=== PATIENT | female | born 1980 | race Caucasian/White ===

== ENCOUNTER 2019-07-02 17:06 | Emergency (ER) | payer MEDICARE, MEDICAID, SELFPAY ==
[2019-07-02 17:08] VITALS: BMI 21.4
[2019-07-02 17:17] VITALS: BP 128/101; PULSE 93; RESP 16; TEMP 36.7; O2SAT 100
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
--- NOTE | 2019-07-02 17:28 | XR_ITS ---
WS: [id number] XR chest 1V portable [id number] REASON FOR EXAM: dyspnea/cough FINDINGS: The lung jauregui are mildly hyper aerated there is mild flattenings of the hemidiaphragms. The lung jauregui otherwise are clear there is no pneumonia, pleural effusion, pulmonary edema, or mass effect. The heart and mediastinum were normal. The hilum and apices normal. No osseous abnormalities. The rib cage appears to be within normal limits. XR/XR chest 1V portable [id number] IMPRESSION: Mild chronic obstructive pulmonary disease.
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
[2019-07-02] MEDS: iohexol 300 mg/mL 100 mL Btl IV (18:19)
[2019-07-02 18:45] LABS: Basophils % 0.4 %; Eosinophils % 0.3 %; Hematocrit 46.2 % (37.0-47.0); Hemoglobin 14.5 g/dL (11.5-15.3); Lymphocytes # 1.6 10^3/uL (0.8-4.8); Lymphocytes % 16.3 %; Mean Corpuscular HGB Conc 31.4 g/dL (30.0-36.0); Mean Corpuscular Hemoglobin 27.6 pg (28.0-34.0); Mean Corpuscular Volume 87.8 fL (81-99); Mean Platelet Volume 12.1 fL (7.4-10.4); Monocytes # 0.5 10^3/uL (0.2-0.9); Monocytes % 5.4 %; Neutrophils # 7.4 10^3/uL (1.8-7.7); Neutrophils % 77.2 %; Nucleated Red Blood Cells % 0 %; Platelet Count 247 10^3/cmm (130-400); Red Blood Count 5.26 10^6/uL (4.1-5.3); Red Cell Distribution Width 13.5 % (12.1-15.1); White Blood Count 9.6 10^3/uL (4.0-10.0)
[2019-07-02 18:56] LABS: Add Urine Microscopic? YES; Bilirubin Urine Neg (NEGATIVE); Blood Urine 2+ (Negative); Glucose Urine UA Norm (Normal); Ketones Urine Negative (Negative); Leukocyte Esterase Urine Negative (Negative); Nitrate Urine Positive (Negative); Protein Urine Neg (Negative); Specific Gravity, Urine 1.025 (1.005-1.030); Urine Appearance Hazy (CLEAR); Urine Color Yellow (Yellow); Urobilinogen Urine Norm (Negative); pH Urine 5 (5-7)
[2019-07-02 18:57] LABS: Add Urine Culture? Yes; Bacteria Urine 4+; Squamous Epithelial Cell Urine 0-4 (0-5); WBC Urine 15-25 /hpf (0-5)
[2019-07-02 18:58] LABS: Blood Urea Nitrogen 15 mg/dL (6-20); Carbon Dioxide 20 mmol/L (22-29); Chloride 101 mmol/L (98-107); Glomerular Filtration Rate 113.1 mL/min (90-130); Glucose 87 mg/dL (65-115); Osmolality Calculated 276 mOsm/kg (285-295); Sodium 135 mmol/L (136-145)
[2019-07-02] MEDS: cefdinir 300 MG CAPSULE PO (19:28)
[2019-07-02 19:31] VITALS: BP 147/104; PULSE 97; RESP 20
[2019-07-02 20:56] LABS: Amphetamines Screen Urine Positive (Negative); Barbiturates Screen Urine Negative (Negative); Benzodiazepines Screen Urine Positive (Negative); Cocaine Screen Urine Negative (Negative); Opiate Screen Urine Negative (Negative); PCP Screen Urine Negative (Negative); THC Screen Urine Negative (Negative)
== END 2019-07-02 19:30 | disposition home or self-care (01) ==
PROVIDERS: Family Medicine; Emergency Provider Emergency Medicine
DX: T14.8XXA Other injury of unspecified body region, initial encounter (principal); Y04.2XXA Assault by strike against or bumped into by another person, initial encounter; N39.0 Urinary tract infection, site not specified; R31.9 Hematuria, unspecified; F17.210 Nicotine dependence, cigarettes, uncomplicated; Z79.899 Other long term (current) drug therapy
CPT/HCPCS: 12345; 70450; 70486; 71045; 74177; 80048; 80306; 81001; 85025; 87077; 87086; 87186; 99282; 99283; Q9967

== ENCOUNTER 2019-08-28 22:14 | Emergency (ER) | payer MEDICARE, MEDICAID, SELFPAY ==
[2019-08-28 22:49] VITALS: BP 176/108; PULSE 105; RESP 20; TEMP 36.4; O2SAT 100; BMI 20.2
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
[2019-08-29 01:47] VITALS: RESP 18
[2019-08-29] MEDS: HYDROmorphone 1 mg/mL INJ 1 mL IVP (01:47)
[2019-08-29] MEDS: ondansetron 2 mg/ML SDV 2 mL 4 MG IVP (01:47)
[2019-08-29] MEDS: diphenhydrAMINE 50 mg/mL SDV 1mL IVP (01:48)
[2019-08-29 03:36] VITALS: BP 159/104; PULSE 90; RESP 18; O2SAT 100
--- NOTE | 2019-08-30 19:35 | ED_ITS ---
HPI - Extremity Problem General: Chief complaint: Extremity Injury, Upper Stated complaint: left arm injury Time Seen by Provider: 08/29/19 01:13 History of Present Illness: HPI Narrative: 38-year-old female who fell off a horse injuring her left forearm. She is in quite a bit of pain. She is iced. She has mild deformity. She states her fingers are somewhat tingly. MD Complaint: extremity pain and extremity swelling Onset (ago): hour(s) Pain Consistency: constant Location: left and upper extremity (Forearm) Quality: stabbing and aching Radiation: proximal Relieving factors: nothing Exacerbating factors: range of motion Associated symptoms: Reports no associated symptoms; Deny chest pain or fever(s) Review of Systems Const: Denies: fever(s) or chills Eyes: Denies: change in vision Card: Denies: chest pain Resp: Denies: dyspnea or productive cough GI: Reports: nausea; Denies: abdominal pain or vomiting PFS ED PFSH: Medical History (Updated 08/29/19 @ 02:33 by Winston Ervin DO) S/P ORIF (open reduction internal fixation) fracture Surgical History (Updated 07/02/19 @ 17:49 by Zoran Cuello DO) History of cholecystectomy Social History Smoking and tobacco status: current every day smoker Female Reproductive History: Date of last menstrual period: 07/02/19 Physical Exam Const: COMMON NORMALS: patient oriented x3 and alert Chest: COMMONS NORMALS: normal inspection of the chest Resp: COMMON NORMALS: normal respiratory effort, No use of accessory muscles and clear to auscultation bilaterally AUSCULTATION: clear to auscultation bilaterally Cardio: COMMON NORMALS: regular rhythm RATE: tachycardic RHYTHM: regular rhythm Extremity: NARRATIVE EXTREMITY EXAM: Significant tenderness over the left distal radius, with some more diffuse tenderness proximally. There is swelling and mild deformity. Neurovascular is intact distally Neuro: COMMON NORMALS: patient oriented x3 SENSORIUM/ORIENTATION: Yes alert Course Vital Signs: Vital signs: Vital Signs Temperature 97.6 F 08/28/19 22:49 Pulse Rate 90 08/29/19 03:36 Respiratory Rate 18 08/29/19 03:36 Blood Pressure 159/104 08/29/19 03:36 Pulse Oximetry 100 08/29/19 03:36 MDM - Extremity (Nontraumatic) MDM Narrative: Medical decision making narrative: Comminuted intra-articular distal radius fracture. Minimal displacement. She is placed in a sugar tong splint, given pain medication. Told to ice. She will follow-up as an outpatient with orthopedics. Discharge Plan Discharge Patient Disposition: Home, Self-Care Clinical Impression: Fracture of wrist Qualifiers: Encounter type: initial encounter Fracture type: closed Laterality: left Qualified Code(s): S62.102A - Fracture of unspecified carpal bone, left wrist, initial encounter for closed fracture Condition: Stable Prescriptions: New Percocet 7.5-325 mg tablet 1 tab PO Q6H PRN (Reason: pain) Qty: 14 RF: 0 No Action spinosad [Natroba] 0.9 % suspension 30 ml TOPICAL Q7D Qty: 120 RF: 0 Discharge Orders: Discharge Order (Routine); Ordered 08/29/19 Ordered By: Winston Ervin Referrals: Duran Cortés MD [Physician] - 4-7 days Discharge Diet: Advance as tolerated Discharge Activity: Limit activity as instructed Patient Instructions: Wrist Fracture in Adults (ED) Activity Restrictions/Additional Instructions: Call the orthopedic clinic for an appointment this coming week. Stay in your splint until seen by them. Return for worsening pain despite treatment, inability to feel your fingers in the splint, fever, other concerning symptoms. Medication as directed. Discharge Date/Time: 08/29/19 03:47 Coding Level of Care Code ED Rock Climbing Team Member for Tio Ochoa
--- NOTE | 2019-08-31 14:37 | DCPLANNER ---
general manager road production had message to schedule a follow up appointment for patient with ortho. general manager road production called the ortho clinic, spoke with Pat, gave clinic patients information. A follow up appointment was scheduled for Sunday, September 01, 2019 at 8:[address] Bello. Patient is aware of appointment.
--- NOTE | 2019-09-04 14:59 | DCPLANNER ---
Patient did attend appointment scheduled for 09.01.19 with ortho.
== END 2019-08-29 03:47 | disposition home or self-care (01) ==
PROVIDERS: Emergency Provider Emergency Medicine
DX: S52.572A Other intraarticular fracture of lower end of left radius, initial encounter for closed fracture (principal); V80.010A Animal-rider injured by fall from or being thrown from horse in noncollision accident, initial encounter; F17.210 Nicotine dependence, cigarettes, uncomplicated
CPT/HCPCS: 12345; 29125; 73090; 96374; 96375; 99283; J1170; J1200; J2405

== ENCOUNTER → 2019-09-01 08:59 | Outpatient (BNVA) | payer MEDICARE, MEDICAID, SELFPAY | PROVIDERS: Visit Provider Orthopaedic Surgery | DX: S52.612A Displaced fracture of left ulna styloid process, initial encounter for closed fracture (principal); V80.010A Animal-rider injured by fall from or being thrown from horse in noncollision accident, initial encounter | CPT/HCPCS: 73110 ==

== ENCOUNTER 2019-09-01 14:19 | Outpatient (CLI) | payer MEDICARE, MEDICAID, SELFPAY | END 2019-09-01 14:20 | disposition home or self-care (01) | LOC: SPT 14:20 | PROVIDERS: Visit Provider Orthopaedic Surgery | DX: Z46.89 Encounter for fitting and adjustment of other specified devices (principal); S52.532D Colles' fracture of left radius, subsequent encounter for closed fracture with routine healing; X58.XXXD Exposure to other specified factors, subsequent encounter; S52.612A Displaced fracture of left ulna styloid process, initial encounter for closed fracture; V80.010A Animal-rider injured by fall from or being thrown from horse in noncollision accident, initial encounter | CPT/HCPCS: 73110; 97760; L3982 ==

== ENCOUNTER 2019-11-21 10:52 | Emergency (ER) | payer MEDICARE, MEDICAID, SELFPAY ==
[2019-11-21 11:10] VITALS: BP 142/90; PULSE 84; RESP 18; TEMP 36.9; O2SAT 100; BMI 20.2
--- NOTE | 2019-11-21 11:39 | XRR_ITS ---
PROCEDURE INFORMATION: Exam: XR Right Hand Exam date and time: 11/21/2019 11:43 AM Age: 39 years old Clinical indication: Injury or trauma; Initial encounter; Bite; Hand; Right; Additional info: Dog bite TECHNIQUE: Imaging protocol: XR Right hand. Views: 3 or more views. COMPARISON: No relevant prior studies available. FINDINGS: The exact location of the patient's symptoms are not known at the time of dictation. Bones/joints: No acute bony injury or malalignment in the visualized right hand. Soft tissues: No radiopaque foreign body. XR/XR hand RT min 3V* [id number] IMPRESSION: No acute bony injury or malalignment in the visualized right hand.
[2019-11-21] MEDS: HYDROcodone-acetaminophen 5-325 mg Tablet 1 TAB PO (12:03)
[2019-11-21] MEDS: tetanus-diphtheria tox (adult) 0.5 mL SDV IM (12:03)
--- NOTE | 2019-11-21 12:11 | W.ED.ANIMALB ---
HPI - Animal Bite General: Chief Complaint: Animal Bite Stated Complaint: RIGHT HAND DOG BITE Time Seen by Provider: 11/21/19 11:19 History of Present Illness: MD complaint: animal bite Onset (ago): minute(s) (30) Animal: dog Description of animal: household pet and immunizations UTD Mechanism: bite Location - Extremities: Right: hand Pain description: sharp Severity scale (1-10): 9 Context: animals fighting Associated symptoms: Reports no associated symptoms; Deny chills or fever(s) Related Data: Patient tetanus UTD: No Review of Systems General: Reports: 10 or more systems reviewed and unremarkable except in HPI and below Const: Denies: fever(s) or chills Resp: Reports: dyspnea, wheezing and stridor Musc: Reports: neck pain, back pain and other (dog bite to palmar and dorsal surface of right hand) Psych: Denies: suicidal ideation or homicidal ideation [facility] ED PFSH: Medical History S/P ORIF (open reduction internal fixation) fracture Surgical History History of cholecystectomy Social History Smoking and tobacco status: current every day smoker Female Reproductive History: Date of last menstrual period: 07/02/19 Physical Exam Const: COMMON NORMALS: no acute distress, average body habitus, patient oriented x3, no limitations, healthy appearing, alert and well nourished Chest: COMMONS NORMALS: normal inspection of the chest, normal palpation of entire chest wall, normal inspection of the breasts and normal palpation of the breasts Resp: COMMON NORMALS: normal respiratory effort, No retractions, No use of accessory muscles, clear to auscultation bilaterally and percussion normal AUSCULTATION: clear to auscultation bilaterally PERCUSSION: percussion normal Cardio: COMMON NORMALS: regular rate and regular rhythm RATE: regular rate RHYTHM: regular rhythm Extremity: RIGHT UPPER EXTREMITY: Yes hand & digits (patient has 4 puncture wounds to dorsal and palmar surfae of right hand) Right hand and digits: Yes neurovascular exam (NVI distally) and Yes tendon exam (normal) Neuro: COMMON NORMALS: patient oriented x3 SENSORIUM/ORIENTATION: Yes alert Course Vital Signs: Vital signs: Vital Signs Temperature 98.4 F 11/21/19 11:10 Pulse Rate 84 11/21/19 11:10 Respiratory Rate 18 11/21/19 11:10 Blood Pressure 142/90 11/21/19 11:10 Pulse Oximetry 100 11/21/19 11:10 MDM - Animal Bite MDM Narrative: Medical decision making narrative: Pt is well appearing non toxic and in no acute distress, PT is declining rabies as she states she is not concerned as this is a family dog. WOunds were irrigated extensively antibiotic oinment and dressing applied. Tetanus was updated today. I will place patient on Augment. Pt is NVI distally. I will refer patietn to hand surgeon for recheck. xray was negative for any acute findings. Differential Diagnosis: Differential diagnosis animal bite: Likely bite by animal, dog bite and rabies contact Medical Records: Attestation: I reviewed the patient's medical records. Discharge Plan Discharge Patient Disposition: Home Clinical Impression: Dog bite Qualifiers: Encounter type: initial encounter Qualified Code(s): W54.0XXA - Bitten by dog, initial encounter Condition: Stable Prescriptions: New Augmentin 875-125 mg tablet 1 tab PO BID 10 Days Qty: 20 RF: 0 No Action hydrocodone-acetaminophen [[place]] 5-325 mg tablet 1 tab PO Q4H PRN (Reason: pain) 7 Days Qty: 30 RF: 0 (DME) FAST FORM COCK UP SPLINT See Rx Instructions .Route .MEDSUPPLY Qty: 1 RF: 0 spinosad [Natroba] 0.9 % suspension 30 ml TOPICAL Q7D Qty: 120 RF: 0 Percocet 7.5-325 mg tablet 1 tab PO Q6H PRN (Reason: pain) Qty: 14 RF: 0 Discharge Orders: Discharge Order (Routine); Ordered 11/21/19 Ordered By: Fatuma Arriaga Discharge Diet: Advance as tolerated Discharge Activity: Resume usual activity Patient Instructions: Animal Bite (ED), Rabies (ED) Activity Restrictions/Additional Instructions: 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
--- NOTE | 2019-11-21 13:15 | PC.NURSE ---
Patient refused rabies vaccinations at this time. Was instructed by the neighbor that they dog was up to date on shots.
[2019-11-21 13:16] VITALS: BP 134/74; PULSE 98; RESP 18; O2SAT 99
--- NOTE | 2019-11-23 09:07 | DCPLANNER ---
vitamin manager had message to schedule a followup appointment for patient with ortho. vitamin manager called the ortho clinic, spoke with Collette, gave clinic patients information. vitamin manager was told that patients information would be printed and reviewed. Clinic will call patient with appointment information.
--- NOTE | 2019-11-25 11:40 | DCPLANNER ---
Patient called case planner stating that she would like to be referred to Dr. Jackson at [facility] in [place], [place]. manager case faxed patients information to [facility]. Clinic will call patient with appointment information.
--- NOTE | 2019-11-27 14:38 | DCPLANNER ---
medical manager called Jeana goodwin to confirm if a follow up appointment had been scheduled with patient. medical manager was told that clinic informed patient that she will need to follow up with her primary care physician.
== END 2019-11-21 13:17 | disposition home or self-care (01) ==
PROVIDERS: Emergency Provider Registered Nurse
DX: S61.451A Open bite of right hand, initial encounter (principal); W54.0XXA Bitten by dog, initial encounter; F17.210 Nicotine dependence, cigarettes, uncomplicated; Z23 Encounter for immunization
CPT/HCPCS: 12345; 73130; 90471; 90714; 99281; 99283

== ENCOUNTER 2020-02-20 15:48 | Emergency (ER) | payer MEDICARE, MEDICAID, SELFPAY ==
[2020-02-20 15:50] VITALS: BP 145/100; PULSE 88; RESP 18; TEMP 36.7; O2SAT 98; BMI 20.5
[2020-02-20 15:55] VITALS: PULSE 77; RESP 16; TEMP 36.8; O2SAT 100
--- NOTE | 2020-02-20 16:03 | W.ED.URI ---
HPI - URI/Sore Throat General: Chief Complaint: Upper Respiratory Infection Stated Complaint: Sore Throat, Body Aches Time Seen by Provider: 02/20/20 15:56 History of Present Illness: HPI Narrative: 39-year-old female patient presents to the emergency department with 2-day onset of sore throat. She reports upon exam, think I have strep throat . She reports Chloraseptic throat spray use that helps with pain. She also reports has taken Tylenol. Unknown if she has had fever as she has been taking Tylenol regularly. Reports pain with swallowing but is able to tolerate p.o. fluids. MD elicited complaint: sore throat Onset (ago): day(s) (2) Consistency: constant and progressively worsening Severity: moderate Able to tolerate fluids by mouth: Yes Exacerbating factors: swallowing Relieving factors: lozenge and other (Tylenol) Associated symptoms: Reports chills, nausea and sore throat; Deny abdominal pain, chest pain, congestion, cough, diarrhea, headache(s), nasal congestion, rash, short of breath, stiffness or vomiting Treatments prior to arrival: acetaminophen Review of Systems General: Reports: 10 or more systems reviewed and unremarkable except in HPI and below Const: Reports: chills Eyes: Denies: blurry vision or eye redness ENMT: Reports: enlarged tonsils and odynophagia; Denies: uvular edema, dry mouth, change in hearing, nasal discharge or nasal congestion Card: Denies: chest pain, palpitations or irregular heart rhythm Resp: Denies: dyspnea, productive cough, non-productive cough or wheezing GI: Reports: nausea; Denies: abdominal pain, vomiting, heartburn, diarrhea or constipation : Denies: difficulty voiding or dysuria Musc: Denies: neck pain or back pain Skin/Breast: Denies: rash or pruritus Neuro: Denies: headache(s), weakness in extremities or behavioral changes Psych: Denies: anxiety or depression Colin/Lymph: Denies: easy bruising PFS ED PFSH: Medical History (Updated 02/20/20 @ 16:50 by HERMES Jacobo) S/P ORIF (open reduction internal fixation) fracture Surgical History History of cholecystectomy Social History Smoking and tobacco status: current every day smoker Female Reproductive History: Date of last menstrual period: 07/02/19 Physical Exam Const: COMMON NORMALS: no acute distress, patient oriented x3, healthy appearing, alert and well nourished EXAM LIMITATIONS: no altered mental status and no physical limitations GENERAL APPEARANCE: cooperative, comfortable, well kempt, well developed and well hydrated; not ill appearing NUTRITIONAL APPEARANCE: thin ORIENTATION/CONSCIOUSNESS: Yes awake, Yes oriented to person, Yes oriented to place and Yes oriented to time HENMT: COMMON NORMALS: normocephalic, atraumatic, external ears normal, EAC's normal, TM's normal bilaterally, Normal external nose present and moist oral mucous membranes HEAD & SCALP: normal to inspection, normocephalic and atraumatic NOSE: Normal external nose present, Normal nares present and No nasal polyps present EXTERNAL EAR: Yes external ears normal EXTERNAL AUDITORY CANAL: EAC's normal TYMPANIC MEMBRANE: TM's normal bilaterally MOUTH: Normal oral and palatal mucosa present, lip normal and tongue normal; no muffled voice THROAT: abnormal tonsil bilateral and posterior oropharynx abnormal erythema and exudates; no peritonsillar mass, no postnasal drainage, uvula not laterally displaced and no uvular edema Eye: COMMON NORMALS: Equal, round and reactive pupils present and EOMs intact bilaterally GENERAL EYE: appearance normal, both eyes and all related structures PUPIL: Yes Equal, round and reactive pupils present Neck/C-Spine: COMMON NORMALS: full ROM and no lymphadenopathy GENERAL: Yes normal visual inspection and Yes trachea midline CERVICAL SPINE: Yes cervical ROM normal Lymph: LYMPHATIC: no lymphadenopathy noted Chest: COMMONS NORMALS: normal inspection of the chest and normal palpation of entire chest wall Resp: COMMON NORMALS: normal respiratory effort, No retractions, No use of accessory muscles and clear to auscultation bilaterally EFFORT & INSPECTION: Yes able to speak in complete sentences AUSCULTATION: clear to auscultation bilaterally Cardio: COMMON NORMALS: regular rhythm, S1 normal heart sound present, S2 normal heart sound present and Peripheral pulses 2+ throughout RHYTHM: regular rhythm HEART SOUNDS: S1 normal heart sound present and S2 normal heart sound present PERIPHERAL PULSES: Peripheral pulses 2+ throughout GI: COMMON NORMALS: Normal to inspection, nondistended, normoactive bowel sounds present, Soft to palpation and non-tender INSPECTION: Yes normal to inspection PALPATION: Yes Soft to palpation : COMMON NORMALS: Yes no CVA tenderness BLADDER/KIDNEY EXAM: Yes no CVA tenderness Back/Pelvis: COMMON NORMALS: no CVA tenderness and thoracic and lumbar spine normal to inspection Extremity: COMMON NORMALS: normal to inspection and capillary refill normal Neuro: COMMON NORMALS: patient oriented x3 and no focal motor deficits SENSORIUM/ORIENTATION: Yes alert, Yes oriented to person, Yes oriented to place and Yes oriented to time Psych: COMMON NORMALS: mental status grossly normal, Normal thought process present and cooperative APPEARANCE: Yes well kempt ACTIVITY/MOTOR BEHAVIOR: Yes appropriate eye contact THOUGHT PROCESS: Normal thought process present Skin: COMMON NORMALS: no rashes or lesions noted and turgor normal GENERAL SKIN EXAM: no rashes or lesions noted and turgor normal Course ED course: 39-year-old female patient presents to the emergency department with complaints of sore throat. She reports has strep throat, similar to previous episode she has experienced. Strep screen results pending. She is wanting to go home, will prescribe Pen-V K and call tomorrow with results of strep screen. She agrees with plan, advised to return to the emergency department if she develops inability swallow or difficulty breathing. Advised to continue Pen-V K until all gone even if feeling better. Vital Signs: Vital signs: Vital Signs Temperature 98.2 F 02/20/20 15:55 Pulse Rate 77 02/20/20 15:55 Respiratory Rate 16 02/20/20 15:55 Blood Pressure 145/100 02/20/20 15:50 Pulse Oximetry 100 02/20/20 15:55 Discharge Plan Discharge Patient Disposition: Home Clinical Impression: Pharyngitis Qualifiers: Pharyngitis/tonsillitis etiology: streptococcus Qualified Code(s): J02.0 - Streptococcal pharyngitis Condition: Stable Prescriptions: New penicillin V potassium 500 mg tablet 500 mg PO TID 10 Days Qty: 30 RF: 0 IBU 600 mg tablet 600 mg PO TID PRN (Reason: fever or pain) Qty: 15 RF: 0 No Action hydrocodone-acetaminophen [[place]] 5-325 mg tablet 1 tab PO Q4H PRN (Reason: pain) 7 Days Qty: 30 RF: 0 (DME) FAST FORM COCK UP SPLINT See Rx Instructions .Route .MEDSUPPLY Qty: 1 RF: 0 spinosad [Natroba] 0.9 % suspension 30 ml TOPICAL Q7D Qty: 120 RF: 0 Percocet 7.5-325 mg tablet 1 tab PO Q6H PRN (Reason: pain) Qty: 14 RF: 0 Discharge Orders: Discharge ED (Routine); Ordered 02/20/20 Ordered By: Anastasiia Amezcua Discharge Diet: GI Soft Discharge Activity: Resume usual activity Patient Instructions: Pharyngitis (ED), Strep Throat (ED) Activity Restrictions/Additional Instructions: increase fluids take Penicillin until all gone, even if feeling better return to the ED if you experience difficulty breathing, swallowing or increased pain Coding Level of Care Code ED Fertilizer Supervisor for Meleg Fwd Exam Comprehensive
[2020-02-20 17:48] LABS: Rapid Strep A Test Positive (Negative)
== END 2020-02-20 17:14 | disposition home or self-care (01) ==
PROVIDERS: Emergency Provider Nurse Practitioner Family
DX: J02.0 Streptococcal pharyngitis (principal); F17.210 Nicotine dependence, cigarettes, uncomplicated
CPT/HCPCS: 12345; 87880; 99281; 99282

== ENCOUNTER → 2020-10-20 12:40 | Outpatient (BNVA) | payer MEDICAID, SELFPAY | PROVIDERS: Visit Provider Nurse Practitioner | DX: R39.9 Unspecified symptoms and signs involving the genitourinary system (principal); N39.0 Urinary tract infection, site not specified; Z20.2 Contact with and (suspected) exposure to infections with a predominantly sexual mode of transmission | CPT/HCPCS: 81000; 87491; 87591; 87661 ==

== ENCOUNTER → 2021-03-01 18:48 | Outpatient (BNVA) | payer MEDICAID, SELFPAY | PROVIDERS: Visit Provider Nurse Practitioner | DX: N39.0 Urinary tract infection, site not specified (principal) | CPT/HCPCS: 81000 ==

== ENCOUNTER → 2021-03-23 18:45 | Outpatient (BNVA) | payer MEDICAID, SELFPAY | PROVIDERS: Visit Provider Nurse Practitioner | DX: R39.9 Unspecified symptoms and signs involving the genitourinary system (principal); N39.0 Urinary tract infection, site not specified | CPT/HCPCS: 81000; 81025; 87077; 87086; 87184; 87491; 87591; 87661 ==

== ENCOUNTER 2021-04-04 23:07 | Emergency (ER) | payer MEDICAID, SELFPAY ==
[2021-04-04 23:15] VITALS: BP 126/82; PULSE 108; RESP 18; TEMP 36.6; O2SAT 100; BMI 22.3
--- NOTE | 2021-04-04 23:29 | W.ED.GENADLT ---
HPI - General Adult General: Chief complaint: General Medical Stated complaint: Sore Throat Time Seen by Provider: 04/04/21 23:24 Source: patient Mode of arrival: ambulatory Limitations: no limitations History of Present Illness: Patient is a 40-year-old female who presents to ED today with complaint of a sore throat and swollen tonsils. Patient states her symptoms are similar to when she has had strep throat previously. She complains of a minor headache. She still able to eat, drink, and swallow normally. No documented fevers. Onset (ago): day(s) Pain Consistency: constant Relieving factors: none Exacerbating factors: other (swallowing) Associated symptoms: Deny chest pain, dyspnea, headache(s), malaise, nausea, rash or vomiting Treatments prior to arrival: none Review of Systems Const: Denies: fever(s), chills, body aches, fatigue or malaise Eyes: Denies: change in vision, blurry vision, photophobia, floaters or seeing flashes ENMT: Reports: throat pain, enlarged tonsils and odynophagia; Denies: uvular edema, mouth pain, dental pain, nasal discharge or nasal congestion Card: Denies: chest pain Resp: Denies: dyspnea GI: Denies: abdominal pain, nausea or vomiting Musc: Denies: neck pain or back pain Skin/Breast: Denies: rash Neuro: Denies: headache(s), numbness in extremities, weakness in extremities or sensory changes [facility] ED PFSH: Surgical History History of cholecystectomy S/P ORIF (open reduction internal fixation) fracture Social History Smoking and tobacco status: former smoker Female Reproductive History: Date of last menstrual period: 07/02/19 Physical Exam Const: COMMON NORMALS: no acute distress, average body habitus, patient oriented x3, no limitations, healthy appearing, alert and well nourished GENERAL APPEARANCE: cooperative ORIENTATION/CONSCIOUSNESS: Yes awake, Yes oriented to person, Yes oriented to place and Yes oriented to time HENMT: COMMON NORMALS: normocephalic, atraumatic, EAC's normal, TM's normal bilaterally and moist oral mucous membranes HEAD & SCALP: normal to inspection, normocephalic and atraumatic FACE & SINUS: normal facial exam EXTERNAL AUDITORY CANAL: EAC's normal TYMPANIC MEMBRANE: TM's normal bilaterally MOUTH: Normal oral and palatal mucosa present, lip normal and tongue normal THROAT: posterior oropharynx normal, uvula midline and abnormal tonsil (bilateral R>L tonsillar hypertropy with exudates; 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); no peritonsillar mass and no uvular edema Neck/C-Spine: COMMON NORMALS: full ROM and no lymphadenopathy GENERAL: No anterior neck swelling and No submandibular swelling Resp: COMMON NORMALS: normal respiratory effort Neuro: COMMON NORMALS: patient oriented x3 SENSORIUM/ORIENTATION: Yes alert, Yes oriented to person, Yes oriented to place and Yes oriented to time Course Vital Signs: Vital signs: Vital Signs Temperature 97.9 F 04/04/21 23:15 Pulse Rate 108 H 04/04/21 23:15 Respiratory Rate 18 04/04/21 23:15 Blood Pressure 126/82 04/04/21 23:15 Pulse Oximetry 100 04/04/21 23:15 MDM - General Adult Medical Decision Making Pt given IM Bicillin. Rapid strep obtained but pt doesn't want to wait for results-states she can look them up on her patient portal. Return to ED precautions given. Lab Data Laboratory Results Group A Strep Rapid Negative (Negative) 04/04/21 23:34 Discharge Plan Discharge Patient Disposition: Home Clinical Impression: Acute tonsillitis Condition: Stable Prescriptions: No Action lisinopril 20 mg tablet 20 mg PO DAILY 0RF phenazopyridine [P[place]idium] 200 mg tablet 200 mg PO TID Qty: 6 0RF ciprofloxacin HCl [Cipro] 500 mg tablet 500 mg PO Q12H 7 Days Qty: 14 0RF Discharge Orders: Discharge ED (Routine); Ordered 04/05/21 Ordered By: April Sunshine Coding Level of Care Code ED Switchboard Operator Assistant for Meleg Don
[2021-04-04 23:49] LABS: Rapid Strep A Test Negative (Negative)
[2021-04-04] MEDS: penicillin g (L-A) 1,200,000 unit/2 mL Syr 1200000 UNIT IM (23:54)
== END 2021-04-05 00:06 | disposition home or self-care (01) ==
PROVIDERS: Emergency Provider Physician Assistant
DX: J03.90 Acute tonsillitis, unspecified (principal); Z87.891 Personal history of nicotine dependence
CPT/HCPCS: 87081; 87880; 96372; 99283; J0561

== ENCOUNTER → 2021-05-14 18:45 | Outpatient (BNVA) | payer MEDICAID, SELFPAY | PROVIDERS: Visit Provider Registered Nurse Neonatal Intensive Care | DX: Z20.2 Contact with and (suspected) exposure to infections with a predominantly sexual mode of transmission (principal); N39.0 Urinary tract infection, site not specified; B37.3 Candidiasis of vulva and vagina | CPT/HCPCS: 81000; 87491; 87591; 87661 ==

== ENCOUNTER → 2021-06-03 16:29 | Outpatient (BNVA) | payer MEDICAID, SELFPAY | PROVIDERS: Visit Provider Nurse Practitioner Family | DX: N39.0 Urinary tract infection, site not specified (principal); Z20.2 Contact with and (suspected) exposure to infections with a predominantly sexual mode of transmission | CPT/HCPCS: 81000; 87661 ==

== ENCOUNTER → 2021-07-13 17:00 | Outpatient (BNVA) | payer MEDICAID, SELFPAY | PROVIDERS: Visit Provider Family Medicine | DX: S99.922A Unspecified injury of left foot, initial encounter (principal); W22.8XXA Striking against or struck by other objects, initial encounter; R60.0 Localized edema; M25.572 Pain in left ankle and joints of left foot | CPT/HCPCS: 73610; 73630 ==

== ENCOUNTER 2022-09-22 03:03 | Emergency (ER) | payer MEDICAID, SELFPAY ==
[2022-09-22 03:13] VITALS: BP 153/112; PULSE 92; RESP 18; TEMP 36.8; O2SAT 100; BMI 21.9
[2022-09-22] MEDS: dexamethasone 4 mg Tablet 10 MG PO (03:29)
[2022-09-22 03:46] LABS: Rapid Strep A Test Negative (Negative)
[2022-09-22 03:53] LABS: SARS Covid-2 Antigen negative (Negative)
[2022-09-22] MEDS: ketorolac 30 mg/mL INJ IM (04:18)
[2022-09-22] MEDS: amoxicillin-clav 875-125 mg Tablet 1 TAB PO (04:18)
--- NOTE | 2022-09-22 05:41 | W.ED.URI ---
HPI - URI/Sore Throat General: Chief Complaint: Upper Respiratory Infection Stated Complaint: Sore throat Time Seen by Provider: 09/22/22 03:28 Source: patient History of Present Illness: 41-year-old female complaining of sore throat that began around 10 PM last night suddenly she says. No fever. No vomiting. No congestion. Pain with swallowing. No change in voice. No shortness of breath. MD elicited complaint: sore throat Pertinent past history: other Onset (ago): hour(s) Consistency: constant Severity: moderate Able to tolerate fluids by mouth: Yes Exacerbating factors: swallowing Relieving factors: nothing Associated symptoms: Reports sore throat; Deny abdominal pain, chest pain, congestion, cough, diarrhea, fever(s), headache(s), nasal congestion, nausea, rhinorrhea, short of breath, stiffness or vomiting Review of Systems Const: Denies: fever(s) ENMT: Reports: throat pain and odynophagia; Denies: hoarseness, swelling of lips/tongue or nasal congestion Card: Denies: chest pain Resp: Denies: dyspnea, productive cough or non-productive cough GI: Denies: abdominal pain, nausea, vomiting or diarrhea Musc: Reports: neck pain Neuro: Denies: headache(s) PFSH ED PFSH: Surgical History History of cholecystectomy S/P ORIF (open reduction internal fixation) fracture Social History Smoking and tobacco status: former smoker Alcohol intake: current Alcohol intake frequency: few times a month Substance/Drug Use: never Physical Exam Const: COMMON NORMALS: no acute distress GENERAL APPEARANCE: cooperative; not ill appearing and not frail appearing HENMT: COMMON NORMALS: normocephalic, atraumatic and Normal external nose present HEAD & SCALP: normocephalic and atraumatic FACE & SINUS: normal facial exam and face symmetric NOSE: Normal external nose present THROAT: abnormal tonsil right (Mild swelling) erythema and left erythema, exudates, hypertrophy and pitting; no peritonsillar mass Eye: COMMON NORMALS: Equal, round and reactive pupils present and EOMs intact bilaterally PUPIL: Yes Equal, round and reactive pupils present Neck/C-Spine: GENERAL: Yes trachea midline Chest: CHEST: Yes Symmetrical chest wall rise Resp: COMMON NORMALS: normal respiratory effort, No retractions, No use of accessory muscles and clear to auscultation bilaterally AUSCULTATION: clear to auscultation bilaterally Cardio: COMMON NORMALS: regular rate and regular rhythm RATE: regular rate RHYTHM: regular rhythm GI: COMMON NORMALS: Normal to inspection, nondistended, normoactive bowel sounds present Extremity: COMMON NORMALS: no pedal edema Neuro: ANGELINA COMA SCALE: document GCS findings Angelina coma scale eye opening: Spontaneous [place] coma scale verbal response: Orientated Angelina coma scale motor response: Obey commands Angelina coma scale total score: 15 SENSORY EXAM: Yes extremities (intact) Psych: COMMON NORMALS: speech normal SPEECH: Yes normal speech Skin: COMMON NORMALS: no rashes or lesions noted GENERAL SKIN EXAM: no rashes or lesions noted Course Vital Signs: Vital signs: Vital Signs Temperature 98.3 F 09/22/22 03:13 Pulse Rate 92 09/22/22 03:13 Respiratory Rate 18 09/22/22 03:13 Blood Pressure 153/112 09/22/22 03:13 Pulse Oximetry 100 09/22/22 03:13 Oxygen Delivery Me thod Room Air 09/22/22 03:13 MDM - URI/Sore Throat Medical Decision Making No definite abscess on physical exam. Swelling is asymmetrical left greater than right. She does have some exudate on the left. She will be placed on antibiotics for coverage, especially of oral bacteria since her rapid strep is negative. She is instructed return if not improving despite 3-4 doses of antibiotics, or if swelling worsens for potential imaging. She was not imaged this morning, she is afebrile, her voice is normal, she has no palatial involvement or deviation, etc. Lab Data Laboratory Results SARS-CoV-2 Ag (Rapid) negative (Negative) 09/22/22 03:29 Group A Strep Rapid Negative (Negative) 09/22/22 03:29 Discharge Plan Discharge Patient Disposition: Home Clinical Impression: Pharyngitis Condition: Stable Prescriptions: New amoxicillin-pot clavulanate 875-125 mg tablet 1 tab PO BID Qty: 20 0RF ketorolac 10 mg tablet 10 mg PO TID PRN (Reason: pain) Qty: 10 0RF No Action azithromycin [Zithromax Z-Rex] 250 mg tablet See Rx Instructions PO .COMPLEX Qty: 6 0RF Rx Instructions: For 250 mg dose pack: take 500 mg today (day 1), then 250 mg for 4 days (days 2-5) PO lisinopril 20 mg tablet 20 mg PO DAILY Qty: 30 0RF Discharge Orders: Discharge ED (Routine); Ordered 09/22/22 Ordered By: Winston Ervin Referrals: Juan Lomas, [Primary Care Provider] - 1-3 days Patient Instructions: Pharyngitis (ED), Opioid Safety, Pain Management Activity Restrictions/Additional Instructions: Return for continued or worsening pain and swelling of the tonsils after 3-4 doses of antibiotics, fever despite 3-4 doses of antibiotics, shortness of breath or worsening trouble swallowing, other concerning symptoms. Follow-up with your doctor next week. Coding Level of Care Code ED Flight Deck Officer for Tio Ochoa
== END 2022-09-22 04:19 | disposition home or self-care (01) ==
PROVIDERS: Emergency Provider Emergency Medicine; PCP Family Medicine
DX: J02.9 Acute pharyngitis, unspecified (principal); Z20.822 Contact with and (suspected) exposure to COVID-19; Z87.891 Personal history of nicotine dependence
CPT/HCPCS: 87081; 87426; 87880; 96372; 99284; J1885; J8540

== ENCOUNTER → 2023-08-23 18:30 | Outpatient (BNVA) | payer BC, MEDICAID, SELFPAY | PROVIDERS: PCP Family Medicine; Visit Provider Nurse Practitioner | DX: N92.6 Irregular menstruation, unspecified (principal); R30.0 Dysuria; Z20.2 Contact with and (suspected) exposure to infections with a predominantly sexual mode of transmission | CPT/HCPCS: 81000; 81025; 87491; 87591 ==

== ENCOUNTER → 2024-11-05 09:51 | Outpatient (BNVA) | payer BC, MEDICAID, SELFPAY | PROVIDERS: PCP Family Medicine; Visit Provider Nurse Practitioner Women's Health | DX: Z34.90 Encounter for supervision of normal pregnancy, unspecified, unspecified trimester (principal) | CPT/HCPCS: 80307; 82950; 84315; 84443; 85025; 86592; 86762; 86803; 86850; 86900; 87086; 87340; 87491; 87591; 87661; 87806 ==

== ENCOUNTER → 2024-11-06 00:08 | Outpatient (BNVA) | payer BC, MEDICAID, SELFPAY | PROVIDERS: PCP Family Medicine; Visit Provider Nurse Practitioner Women's Health | DX: Z01.89 Encounter for other specified special examinations (principal) | CPT/HCPCS: 87522 ==

== ENCOUNTER 2024-11-13 14:30 | Outpatient (CLI) | payer BC, MEDICAID, SELFPAY ==
--- NOTE | 2024-11-13 14:45 | USR_ITS ---
PROCEDURE INFORMATION: Exam: US After First Trimester, Transabdominal Exam date and time: 11/13/2024 2:53 PM Age: 44 years old Clinical indication: Screening exam; Routine US, uterus; Additional info: Z34.90 - encounter for supervision of normal , u. . . , Vishal--late to care LABS AND CLINICAL REPORTS: Last menstrual period start date: Unknown Gestational age (Established): 30 w 2 d Estimated due date (Established): 01/20/2025 TECHNIQUE: Imaging protocol: Real-time transabdominal obstetrical ultrasound of the maternal pelvis and a second or third trimester with image documentation. COMPARISON: CT abdomen pelvis w con* [id number] 07/02/2019 6:16 PM FINDINGS: Gestation: Single live intrauterine gestation. heart rate: 145 bpm presentation and position: Cephalic Placenta: Unremarkable. No subchorionic bleed. Placenta is posterior. Amniotic fluid (Qualitative): Amniotic fluid is normal for gestational age. Amniotic fluid index: Not measured. ANATOMY: midline falx: [Normal cerebellum: [Within normal limits. lateral ventricles: [Within normal limits. cisterna magna: [Within normal limits. choroid plexus: [Within normal limits. face: Visualized but not optimally profiled. heart four-chamber view, heart size and position: Normal heart right ventricular outflow tract: [Normal heart left ventricular outflow tract normal kidneys: Normal stomach: Normal urinary bladder: Contains urine. Within normal limits. spine: [Unremarkable. Umbilical cord and insertion: [Three-vessel cord. upper limbs: [Present lower limbs: [Present external genitalia: [Not able to be visualized due to positioning. BIOMETRY: Gestational age (AUA): [29 weeks 5 days. Estimated due date (AUA): 01/24/2025. Estimated weight: 1491 g . 27.5 percentile. Biparietal diameter (BPD): 7.14 cm. EGA (BPD) is 28 w 5 d. 4.7 % percentile Head circumference (HC): 26.61 cm. EGA (HC) is 29 w 0 d. 3 % percentile Abdominal circumference (AC): 26.12 cm. EGA (AC) is 30 w 2 d. 44.5 % percentile Femur length (FL): 5.77 cm. EGA (FL) is 30 w 1 d. 32.8 % percentile HC/AC: 1.02. (Normal range: 0.98 - 1.2) FL/HC: 21.68. (Normal range: 19.31 - 21.23) FL/BPD: 80.81. (Normal range: 71 - 87) FL/AC: 22.09. (Normal range: 20 - 24) MATERNAL: Uterus: Unremarkable. Cervix: Cervical length measures 5.4 cm. Right ovary/adnexa: Obscured by lack of adequate acoustic window. Left ovary/adnexa: Obscured by lack of adequate acoustic window. Intraperitoneal space: No intraperitoneal free fluid. US/US OB >= 14 weeks fetus [id number] IMPRESSION: Viable single intrauterine fetus in cephalic presentation. Gestational age 29 weeks 5 days. This compares to clinical gestational age of 30 weeks 2 days. Femur length head circumference growth ratio slightly elevated. Otherwise growth ratios are normal range. Estimated weight 1491 g. 27.5 percentile.
== END 2024-11-13 14:31 | disposition home or self-care (01) ==
LOC: RAD 14:30
PROVIDERS: PCP Family Medicine; Visit Provider Nurse Practitioner Women's Health
DX: Z34.92 Encounter for supervision of normal pregnancy, unspecified, second trimester (principal); Z3A.14 14 weeks gestation of pregnancy
CPT/HCPCS: 76805

== ENCOUNTER → 2024-12-03 11:26 | Outpatient (BNVA) | payer BC, MEDICAID, SELFPAY | PROVIDERS: PCP Family Medicine; Visit Provider Obstetrics & Gynecology | DX: O99.320 Drug use complicating pregnancy, unspecified trimester (principal); O98.419 Viral hepatitis complicating pregnancy, unspecified trimester; A53.0 Latent syphilis, unspecified as early or late; B19.20 Unspecified viral hepatitis C without hepatic coma; F19.91 Other psychoactive substance use, unspecified, in remission | CPT/HCPCS: 80307; 84315; 86592 ==

== ENCOUNTER → 2024-12-08 16:06 | Outpatient (BNVA) | payer BC, MEDICAID, SELFPAY | PROVIDERS: PCP Family Medicine; Visit Provider Obstetrics & Gynecology | DX: A53.0 Latent syphilis, unspecified as early or late (principal) | CPT/HCPCS: 86592 ==

== ENCOUNTER → 2024-12-09 11:50 | Outpatient (BNVA) | payer BC, MEDICAID, SELFPAY | PROVIDERS: PCP Family Medicine; Visit Provider Nurse Practitioner Women's Health | DX: O09.93 Supervision of high risk pregnancy, unspecified, third trimester (principal) | CPT/HCPCS: 84315 ==

== ENCOUNTER 2024-12-21 08:14 | Outpatient (CLI) | payer BC, MEDICAID, SELFPAY ==
--- NOTE | 2024-12-21 08:15 | USR_ITS ---
PROCEDURE INFORMATION: Exam: US , Follow up Exam date and time: 12/21/2024 8:29 AM Age: 44 years old Clinical indication: Screening exam; Routine US, uterus; Additional info: Z34.90 - encounter for supervision of normal , u. . . LABS AND CLINICAL REPORTS: Gestational age (Established): 35 w 5 d Estimated due date (Established): 01/20/2025 TECHNIQUE: Imaging protocol: Transabdominal ultrasound of the uterus, real time with image documentation. Follow-up (eg, re-evaluation of size by measuring standard growth parameters and amniotic fluid volume, re-evaluation of organ system(s) suspected or confirmed to be abnormal on a previous scan). COMPARISON: US OB >= 14 weeks fetus [id number] 11/13/2024 2:53 PM FINDINGS: Gestation: Single live intrauterine gestation. Cephalic presentation of the fetus. The placenta is posterior. Estimated gestational age of 35 weeks and 0 days. Estimated date of delivery of 01/25/2025. heart rate: 146 bpm BIOMETRY: Estimated weight: 2557.23 g. EFW by AC, BPD, FL, HC, [place] 1985 this is within the 28.9 percentile. Biparietal diameter (BPD): 8.63 cm. EGA (BPD) is 34 w 6 d. 30.4 % percentile Head circumference (HC): 31.57 cm. EGA (HC) is 35 w 3 d. 14.5 % percentile Abdominal circumference (AC): 31.03 cm. EGA (AC) is 35 w 0 d. 37.1 % percentile Femur length (FL): 6.77 cm. EGA (FL) is 34 w 6 d. 21.8 % percentile HC/AC: 1.02. (Normal range: 0.93 - 1.11) FL/HC: 21.44. (Normal range: 20.1 - 22.3) FL/BPD: 78.45. (Normal range: 71 - 87) FL/AC: 21.82. (Normal range: 20 - 24) MATERNAL: Cervix: Cervical length measures 5.2 cm[place] US[place] [id number] IMPRESSION: Unremarkable limited exam.
== END 2024-12-21 08:15 | disposition home or self-care (01) ==
LOC: RAD 08:15
PROVIDERS: PCP Family Medicine; Visit Provider Nurse Practitioner Women's Health
DX: Z34.90 Encounter for supervision of normal pregnancy, unspecified, unspecified trimester (principal)
CPT/HCPCS: 76816

== ENCOUNTER → 2024-12-24 15:00 | Outpatient (BNVA) | payer BC, MEDICAID, SELFPAY | PROVIDERS: PCP Family Medicine; Visit Provider Obstetrics & Gynecology | DX: Z34.83 Encounter for supervision of other normal pregnancy, third trimester (principal) | CPT/HCPCS: 81000; 87081 ==

== ENCOUNTER 2024-12-30 11:50 | Outpatient (CLI) | payer BC, MEDICAID, SELFPAY ==
[2024-12-30 12:02] VITALS: BP 132/84; PULSE 86
[2024-12-30 12:22] VITALS: BP 124/80; PULSE 83
[2024-12-30 12:45] VITALS: BMI 28.1
== END 2024-12-30 12:37 | disposition home or self-care (01) ==
LOC: OPOB 11:51 → OBGYN 11:52
PROVIDERS: PCP Family Medicine; Visit Provider Obstetrics & Gynecology
DX: O09.519 Supervision of elderly primigravida, unspecified trimester (principal); O13.9 Gestational [pregnancy-induced] hypertension without significant proteinuria, unspecified trimester; Z3A.00 Weeks of gestation of pregnancy not specified
CPT/HCPCS: 59025; 83986; 99211

== ENCOUNTER 2025-01-02 14:28 | Outpatient (CLI) | payer BC, MEDICAID, SELFPAY ==
[2025-01-02 14:28] VITALS: BMI 28.3
[2025-01-02 14:44] VITALS: BP 133/82; PULSE 81
[2025-01-02 15:00] VITALS: BP 120/80; PULSE 80
== END 2025-01-02 15:10 | disposition home or self-care (01) ==
LOC: OPOB 14:33 → OBGYN 14:34
PROVIDERS: PCP Family Medicine; Visit Provider Obstetrics & Gynecology
DX: O09.519 Supervision of elderly primigravida, unspecified trimester (principal); O13.9 Gestational [pregnancy-induced] hypertension without significant proteinuria, unspecified trimester; Z3A.00 Weeks of gestation of pregnancy not specified
CPT/HCPCS: 59025

== ENCOUNTER 2025-01-06 13:13 | Outpatient (CLI) | payer BC, MEDICAID, SELFPAY ==
[2025-01-06 13:10] VITALS: BMI 28.5
[2025-01-06 13:23] VITALS: BP 159/96; PULSE 89
[2025-01-06 13:39] VITALS: BP 148/82; PULSE 82
== END 2025-01-06 13:57 | disposition home or self-care (01) ==
LOC: OPOB 13:13 → OBGYN 13:14
PROVIDERS: PCP Family Medicine; Visit Provider Obstetrics & Gynecology
DX: O13.9 Gestational [pregnancy-induced] hypertension without significant proteinuria, unspecified trimester (principal); Z3A.00 Weeks of gestation of pregnancy not specified
CPT/HCPCS: 59025; 84315; 99211

== ENCOUNTER 2025-01-09 11:04 | Outpatient (CLI) | payer BC, MEDICAID, SELFPAY ==
[2025-01-09 11:04] VITALS: BMI 28.3
[2025-01-09 11:13] VITALS: BP 122/80; PULSE 85
[2025-01-09 11:34] VITALS: BP 122/84; PULSE 77
[2025-01-09 11:40] VITALS: BP 122/84; PULSE 77; O2SAT 98
== END 2025-01-09 11:40 | disposition home or self-care (01) ==
LOC: OPOB 11:05 → OBGYN 11:09
PROVIDERS: PCP Family Medicine; Visit Provider Obstetrics & Gynecology
DX: O13.9 Gestational [pregnancy-induced] hypertension without significant proteinuria, unspecified trimester (principal); Z3A.00 Weeks of gestation of pregnancy not specified
CPT/HCPCS: 59025; 99211

== ENCOUNTER 2025-01-10 21:18 | Inpatient (IN) | payer BC, MEDICAID, SELFPAY ==
[2025-01-10] VITALS (14 sets, daily range): BP systolic 98–138; BP diastolic 56–92; PULSE 71–100; RESP 18; TEMP 36.9; BMI 28.3
[2025-01-10 19:47] LABS: Hematocrit 39.1 % (36-47); Hemoglobin 12.80 g/dL (11.27-16.99); Mean Corpuscular HGB Conc 32.7 g/dL (30-55); Mean Corpuscular Hemoglobin 29.2 pg (27-33); Mean Corpuscular Volume 89.1 fl (85-98); Nucleated Red Blood Cells % 0 %; Platelet Count 284 10^3/cmm (157-399); Red Blood Count 4.39 10^6/uL (3.85-5.65); White Blood Count 9.68 10^3/uL (3.29-11.43)
--- NOTE | 2025-01-10 19:47 | PM.OBGYHP ---
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 History of Present Illness: 44-year-old at 38 weeks 4 days by LMP 04/01/2024 (ERIC 01/06/2025). Presents today reporting uterine contractions and perceived decreased movement. She previously declined guideline-recommended induction at 37 weeks but now agrees to remain for induction to reduce risks associated with chronic hypertension and advanced gestational age. She has chronic hypertension, prescribed labetalol 200 mg BID but has only been taking 200 mg once daily in the morning. She is taking low-dose aspirin as recommended. Other pertinent history includes Hepatitis C infection with high RNA load (ID referral made), advanced maternal age, tobacco use (?3 cigarettes/day; declined nicotine patch previously sent to pharmacy), and history of methamphetamine and benzodiazepine use with UDA positive for amphetamines on 11/05/24. Review of Systems: ? Genitourinary/Obstetric: Positive for uterine contractions; reports decreased movements today. No additional systems reviewed. Family History: Not discussed during this encounter. Present Details : 4 Para: 3 Medications/Allergies Home Medications ?Medication ?Instructions ?Recorded ?Confirmed ?Last Taken ?Type aspirin 81 mg tablet,delayed 81 mg PO 1XD 09/17/24 01/10/25 01/10/25 History release labetalol 100 mg tablet 100 mg PO 1XD 09/17/24 01/10/25 01/10/25 History vitamins with calcium 1 tab PO 1XD 09/17/24 01/10/25 01/10/25 History no.72-iron 27 mg-folic acid 1 mg tablet (M- Plus) Allergies Allergy/AdvReac Type Severity Reaction Status Date / Time No Known Allergies Allergy Verified 01/10/25 19:43 PFSH DIRECTOR [employer] PFSH: Medical History (Updated 01/10/25 @ 20:15 by Hiren Rome MD) Depression Colles' fracture of left radius PTSD (post-traumatic stress disorder) Surgical History S/P ORIF (open reduction internal fixation) fracture History of cholecystectomy Social History Smoking and tobacco/nicotine status: current every day tobacco/nicotine user (3 cigs per day) cigarettes Packs smoked per day: 0.5 Alcohol intake: current Alcohol intake frequency: few times a month Substance/Drug Use: never History History History 7 Term 3 0 Miscarriages/Ectopic 3 Living Children 3 Care ERIC Calculator Estimated Delivery Date Method Current WG Current Estimate 01/20/25 Manual 38w 4d Other Estimates 01/06/25 LMP (Certain) 40w 4d 01/24/25 Ultrasound #2 38w 0d Specific Issues/Plans CHRONIC HTN HEP C INFECTION ---- ACTIVE RPR POSITIVE ---- RPR w/ relfex to titer collected 12/03/24 this was NONREACTIVE, most likely had a false positive METH USE IN --- TESTED POSITIVE ON 11/05/24 LACK OF CARE ADVANCED MATERNAL AGE HX OF DRUG USE---METH AND BENZOS FORMER SMOKER 1/2 PPD DOMESTIC ABUSE-- FOB Vitals/I&O/Wt Last Vital Signs Pulse 91 01/10/25 19:42 Resp 18 01/10/25 19:40 BP 137/89 01/10/25 19:42 Weight last 48 hrs Weight 165 lb Physical Exam Narrative: Objective Vital Signs: Measure Value ------- BP <140/<95 mmHg (on admission) GA 38 weeks 4 days FHR Reactive tracing, moderate variability, no decelerations Physical Exam: ? General: Alert, in no acute distress. ? Abdomen/OB: Low-amplitude uterine contractions noted. Cervix 0 cm dilated, no effacement, posterior. ? assessment: FHR within normal range, moderate variability, no decelerations noted on monitoring. Obstetric History: ? Last vaginal delivery: 12/18/2005. ? All previous deliveries were vaginal. ? Heaviest baby: 8 lbs 12 oz, delivered with vacuum extraction. Laboratory data relevant for visit: ? Preeclampsia laboratory panel ordered on admission (results pending). Imaging data relevant for visit: ? None reviewed or obtained during this encounter. Data 01/10/25 19:32 01/10/25 19:32 Results Labs OB ([facility]): Obstetrics US 12/21/24 Blood Type O Positive 11/05/24 Antibody Screen Negative 11/05/24 Hct, (36-47) 35.4 % L 11/05/24 Hgb, (11.27-16.99) 11.60 g/dL 11/05/24 Rho(D) Type Rh positive 11/05/24 Plt Count, (157-399) 247 10^3/cmm 11/05/24 Hep Bs Antigen, (Nonreactive) Non-reactive 11/05/24 Hepatitis C Antibody, (Nonreactive) Reactive H 11/05/24 Rubella IgG Antibody, (0.0-10.0) 5.3 IU/mL 11/05/24 RPR, (Nonreactive) Reactive 11/05/24 T.pallidum Ab (FTA-ABS) Reactive minimal A 12/03/24 HIV 1&2 Ab & HIV 1 Ag, (Non-Reactiv) Non-reactive 11/05/24 TSH, (0.27-4.20) 1.99 uIU/mL 11/05/24 C.trachomatis RNA (TMA), (NOT DETECTED) Not detected 08/23/23 N.gonorrhoeae RNA (TMA), (NOT DETECTED) Not detected 08/23/23 T. vaginalis Amp RNA, (NOT DETECTED) Not detected 08/23/23 Chlamydia/GC Comment See note 08/23/23 Glucose 1 Hr 50 gm, (85-140) 115 mg/dL 11/05/24 Uric Acid Pending Today HCG, Qual, (Negative) Negative 08/23/23 Urine Opiates Screen, (Negative) Negative ng/mL Today Ur Barbiturates Screen, (Negative) Negative ng/mL Today Ur Phencyclidine Scrn, (Negative) Negative ng/mL Today Ur Amphetamines Screen, (Negative) Positive ng/mL H Today U Benzodiazepines Scrn, (Negative) Negative ng/mL Today Urine Cocaine Screen, (Negative) Negative ng/mL Today U Marijuana (THC) Screen, (Negative) Negative ng/mL Today Micro Urine Specimen 11/05/24 A&P Assessment and plan 1. Multigravida of advanced maternal age in third trimester: 2. 38 weeks gestation of : 3. Essential hypertension: 4. Hepatitis C virus infection in mother during : 5. History of illicit drug use: 6. Poor compliance: Plan: Assessment & Plan 44-year-old at 38 weeks 4 days with chronic hypertension, Hepatitis C infection, tobacco and substance use history, presents with contractions and decreased movement; agrees to induction today. Problem #1: 38 w 4 d with contractions ? induction of labor Assessment: Term with chronic hypertension and AMA. Patient now consents to guideline-recommended induction. Plan: - Proceed with induction of labor today. - Continuous monitoring. - Provide PRN IV and epidural analgesia per patient request. - Follow cervical progress; reassess as clinically indicated. Problem #2: Chronic hypertension in Assessment: On labetalol 200 mg BID but taking only one daily dose; BP currently <140/<95 mmHg. Plan: - Continue labetalol as prescribed; reinforce importance of BID dosing. - Preeclampsia labs ordered on admission; monitor results. - Monitor blood pressures during labor and . Problem #3: Hepatitis C infection Assessment: Known Hep C with high viral load; ID referral previously placed but not attended. Plan: - Re-emphasize need for Infectious Disease follow-up . - Standard Hep C exposure precautions after delivery. Problem #4: Tobacco use disorder Assessment: Currently smoking ~3 cigarettes/day; declined nicotine patches. Plan: - Counseled on smoking cessation benefits to maternal and health. Problem #5: History of methamphetamine & benzodiazepine use; positive UDA 11/05/24 Assessment: Ongoing risk for substance use. Plan: - Continue routine UDA screening as per protocol. Problem #6: Advanced maternal age / declined genetic screening Assessment: AMA ; patient previously declined screening. Plan: - Document patient preference; no further genetic testing pursued this . Follow-up: In-hospital management until delivery. follow-up per routine. O09.52, O10.01, B18.2, Z86.59, F13.10 PDMP PDMP Reviewed: Not Reviewed Attestations Medical Necessity Statement*: High risk needing recommended induction of labor at term. Coding Level of Care Code Acute Code for Chg Fwd Diagnoses Multigravida of advanced maternal age in third trimester O09.523 Trimester: third trimester 38 weeks gestation of Z3A.38 Essential hypertension I10 Hepatitis C virus infection in mother during O98.419; B19.20 History of illicit drug use F19.91 Poor compliance Z91.199
[2025-01-10 19:59] LABS: PCP Screen Urine Negative (Negative)
[2025-01-10 20:08] LABS: Alanine Aminotransferase 16 U/L (0-33); Albumin Level 3.0 g/dL (3.5-5.2); Alkaline Phosphatase 192 U/L (35-105); Chloride 103 mmol/L (98-107); Potassium 3.8 mmol/L (3.5-5.1); Sodium 135 mmol/L (136-145); Uric Acid 4.2 mg/dL (2.4-5.7)
[2025-01-10 20:09] LABS: UPRO/UCREAT Ratio 0.22 mg/mg CR
[2025-01-10 20:15] LABS: Glucose Urine UA Negative (Normal); Nitrate Urine Positive (Negative); Specific Gravity, Urine 1.011 (1.005-1.030)
[2025-01-10 20:16] LABS: Add Urine Microscopic? YES
[2025-01-10 20:25] LABS: Anion Gap 13.8 (5-19); Aspartate Amino Transferase 20 U/L (0-32); Blood Urea Nitrogen 5 mg/dL (6-20); Calcium 8.9 mg/dL (8.5-10.5); Carbon Dioxide 22 mmol/L (22-29); Creatinine Clr Calc Pharmacy 145.2132; Globulin 2.9 g/dL (1.3-4.6); Glucose 102 mg/dL (65-115); Osmolality Calculated 277 mOsm/kg (285-295); Total Protein 5.9 g/dL (6.6-8.7)
[2025-01-11] VITALS (26 sets, daily range): BP systolic 97–137; BP diastolic 58–84; PULSE 62–99; RESP 14; TEMP 36.9–37.1
--- NOTE | 2025-01-11 00:05 | PC.NURSE ---
Patient was alone in room at this time. RN advised patient that her urine drug screen was positive and asked patient if she knew why. Patient stated yea I smoke meth sometimes. RN asked patient when she last used and patient reported Saturday. RN clarified that the last use was 2 days ago on 01/08/2025. Patient reports that she smokes meth and denies any other method of use. Patient reports that she used to use Subutex because of opiate addiction but I don't need that anymore and I don't use opiates anymore just meth. RN asked how often patient uses methamphetamines and patient states eh every couple hours. RN advised that she was concerned about withdrawals for patient and asked if she had ever gone 2 days without methamphetamine before and patient states I have been cautious during my .
[2025-01-11] MEDS: HYDROmorphone 0.5 MG/0.5 ML INJ 0.2 MG IVP ×5 (01:55→21:12)
--- NOTE | 2025-01-11 21:03 | PM.OBGYPN ---
CURATORIAL ASSISTANT Subjective Subjective: Interval history: Date & Time: 2025-01-12 17:00 Patient Name: : MRN: Author / Clinician: Hiren Rome MD Subjective Chief Complaint: ?Contractions, decreased movement, and increased BPs.? History of Present Illness: Patient [place],hep c with elevated viral load, chronic hypertensive on labetalol was admitted yesterday for uterine contractions at term together with complaints of ?decreased movement?. Tested positive for amphetamines. She had previously dismissed elective induction recommendations but accepted induction after arriving for triage yesterday. Initial pelvic exam this morning showed a closed cervix. Misoprostol had been administered orally since last night. On a second bedside evaluation at approximately 17:00, the patient reported that uterine contractions had become more intense and closer together. She has requested pain medication throughout the night and today. Theres is dark blood observed in glove after both checks but no clots. Blood pressure remains well controlled with initially prescribed labetalol 200 mg BID, of which patient had been taking only half dose in the morning, preeclampsia labs normal including P/C ratio of 0.2. heart rate has been consistently reassuring without decelerations. Review of Systems: - CURATORIAL ASSISTANT: Reports uterine contractions increasing in intensity and frequency. Denies current severe pain. - Genitourinary: Dark vaginal bleeding present. - Cardiopulmonary: BPs normal . Objective Vital Signs: Measure Value Blood Pressure (19:00) 123/58 mmHg Physical Exam: - Pelvic exam (17:00): Cervix soft, anterior, ~70% effaced, 0 cm dilated, station ?3. No adequate dilation to allow Leggett balloon placement. - heart rate: Reassuring pattern, no decelerations observed. Laboratory data relevant for visit: None discussed. Imaging data relevant for visit: None discussed. Labor: Station: -5 Amniotic Membrane Status: Intact Monitor Mode: External Contraction Pattern: Regular Vitals/I&O/Wt Last Vital Signs Temp 98.8 F 01/11/25 19:09 Pulse 65 01/11/25 20:02 Resp 14 01/11/25 20:02 BP 122/82 01/11/25 20:02 O2 Del Method Room Air 01/11/25 05:04 Weight last 48 hrs Weight 165 lb Data 01/10/25 19:19 Micro: Microbiology 01/10/25 19:19 Urine Culture - Preliminary Urine,Clean Catch Gram Negative Rods A&P Assessment and plan 1. Multigravida of advanced maternal age in third trimester: 2. 38 weeks gestation of : 3. Essential hypertension: 4. Hepatitis C virus infection in mother during : 5. History of illicit drug use: 6. Poor compliance: Plan: Assessment & Plan Term undergoing cervical ripening with misoprostol. Cervix remains closed but is now softer and 70 % effaced. Hemodynamically stable; FHR reassuring. Problem #1: Cervical Ripening / Induction of Labor Assessment: Minimal progress. Cervix soft, anterior, 70 % effaced, 0 cm dilated, station ?3 after serial doses of misoprostol PO. Uterine activity increasing; no distress. Plan: - Change misoprostol route from PO to vaginal per discussion at bedside.after overnight misoprostol begin oxytocin protocol. - Continue current monitoring of uterine activity and heart rate. - Reassess cervix after subsequent dose; weight risk/benefit when considering mechanical methods (e.g., Leggett balloon) once dilation is adequate vs increased risks of maternal transmission of hep c due to increased maternal viremia. Problem #2: Labor Pain Management Assessment: Patient experiencing intermittent contractions; requested pain medication but reports no active pain at evaluation. Plan: - Provide analgesia as requested (medication orders placed). Epidural if requested and in active labor. - Continue to monitor pain level and adjust analgesic regimen PRN. PDMP PDMP Reviewed: Not Reviewed Attestations Medical Necessity Statement*: Justification high risk undergoing medically indicated induction. Coding Level of Care Code Acute Code for Chg Fwd Diagnoses Multigravida of advanced maternal age in third trimester O09.523 Trimester: third trimester 38 weeks gestation of Z3A.38 Essential hypertension I10 Hepatitis C virus infection in mother during O98.419; B19.20 History of illicit drug use F19.91 Poor compliance Z91.199
[2025-01-12] VITALS (68 sets, daily range): BP systolic 98–167; BP diastolic 50–98; PULSE 58–99; RESP 14–16; TEMP 36.5–36.9; O2SAT 87–100
[2025-01-12] MEDS: HYDROmorphone 0.5 MG/0.5 ML INJ 0.2 MG IVP (05:25)
[2025-01-12] MEDS: PRENATAL VIT NO.130/IRON/FOLIC 1 EACH TABLET PO (06:33)
--- NOTE | 2025-01-12 08:21 | P.PN_ITS ---
Subjective 2 Subjective: Taking IOL for cHTN. at 38+6 wks, long induction. Vitals/I&O/Wt Last Vital Signs Temp 98.5 F 01/12/25 03:52 Pulse 66 01/12/25 08:18 Resp 14 01/12/25 06:32 BP 135/82 01/12/25 08:18 O2 Del Method Room Air 01/12/25 06:32 Weight last 48 hrs Weight 165 lb Physical Exam 2 : OTHER: cvx 2/70/-2, vertex, Leggett balloon placed, will start pitocin and get epidural GBS negative. Data 01/10/25 19:19 Micro: Microbiology 01/10/25 19:19 Urine Culture - Preliminary Urine,Clean Catch Gram Negative Rods A&P PDMP PDMP Reviewed: Not Reviewed Attestations 2 Medical Necessity Statement*: IOL Coding Level of Care Code Acute Code for Chg Fwl[place]un
[2025-01-12] MEDS: oxytocin 30 UNIT/500 ML BAG IV (08:45)
[2025-01-12] MEDS: ROPivacaine premix 200 MG/100 ML PREMIX 10 MG EPIDURAL ×2 (09:19→14:34)
--- NOTE | 2025-01-12 10:36 | ANES.PREANE2 ---
Pre-Anesthetic Assessment Height/Weight: Height 5 ft 4 in Weight 165 lb Temp Pulse Resp BP Pulse Ox O2 Del Method 97.7 F 67 14 115/73 100 Room Air 01/12/25 09:19 01/12/25 10:30 01/12/25 06:32 01/12/25 10:30 01/12/25 10:04 01/12/25 06:32 Preop Diagnosis: IUP Was Beta Ladi taken within 24 hours: Yes Was Clonidine taken within 24 hours: N/A Social Tobacco Exam alert, oriented x 3, clear to auscultation bilaterally and regular rate & rhythm Airway Submandibular: within normal limits Cervical ROM: within normal limits Mallampati: Class III Anesthetic Plan ASA status: 3 Anesthesia: Regional (specify below) Other: Patient presents in active labor, denies any issues with prior epidurals Patient denies any issues with anesthesia in the past Patient denies any medical history Per chart review patient is hep C positive and has chronic hypertension on labetalol Patient was also positive for amphetamines upon admission Labs reviewed acceptable for procedure Plan for epidural placement Medications/Allergies Home Medications ?Medication ?Instructions ?Recorded ?Confirmed ?Last Taken ?Type aspirin 81 mg tablet,delayed 81 mg PO 1XD 09/17/24 01/10/25 01/10/25 History release labetalol 100 mg tablet 100 mg PO 1XD 09/17/24 01/10/25 01/10/25 History vitamins with calcium 1 tab PO 1XD 09/17/24 01/10/25 01/10/25 History no.72-iron 27 mg-folic acid 1 mg tablet (M-Michelle Plus) Allergies Allergy/AdvReac Type Severity Reaction Status Date / Time No Known Allergies Allergy Verified 01/10/25 19:43 Current Medications Generic Name Dose Route Start Last Admin Trade Name Freq PRN Reason Stop Dose Admin Aspirin 81 mg 01/12/25 05:00 01/12/25 06:33 Aspirin 81 Mg Ec Tablet PO 81 mg DAILY TYLER Administration Hydromorphone HCl 0.2 mg 01/10/25 20:24 01/12/25 05:25 Hydromorphone 0.5 Mg/0.5 Ml Inj IVP 0.2 mg Q3H PRN Administration PAIN Hydroxyzine Pamoate 50 mg 01/10/25 19:30 01/11/25 03:24 Hydroxyzine 25 Mg Capsule PO 50 mg QID PRN Administration sleep, agitation or itching Dextrose/Lactated Ringer's 1,000 mls @ 125 mls/hr 01/10/25 19:30 01/12/25 08:29 Dextrose 5%-Lactated Ringers IV Not Given .Q8H TYLER Ropivacaine 200 mg in 100 mls @ 10 mls/hr 01/12/25 08:30 01/12/25 09:19 Naropin Premix EPIDURAL 10 mls/hr .Q10H TYLER Administration Sodium Chloride 1,000 mls @ 999 mls/hr 01/12/25 08:22 01/12/25 10:28 Sodium Chloride 0.9% IV 122 mls/hr .Q1H1M PRN Infusion See label comments Oxytocin 30 unit in 500 mls @ 1 mls/hr 01/12/25 08:30 01/12/25 10:28 Pitocin IV 3 milliunit/min .Q24H TYLER 3 mls/hr Protocol Titration 1 MILLIUNIT/MIN Labetalol HCl 200 mg 01/10/25 20:00 01/12/25 06:32 Labetalol 200 Mg Tablet PO 200 mg BID TYLER Administration Prenat Multivit/[place]/Iron/Folic Ac 1 each 01/12/25 05:00 01/12/25 06:33 Vit No.130/Iron/Folic 1 Each Tablet PO 1 each DAILY TYLER Administration PFSH Anesthesia Medical History (Updated 01/10/25 @ 20:15 by Hiren Rome MD) Depression Colles' fracture of left radius PTSD (post-traumatic stress disorder) Surgical History S/P ORIF (open reduction internal fixation) fracture History of cholecystectomy Social History Smoking and tobacco/nicotine status: current every day tobacco/nicotine user (3 cigs per day) cigarettes Packs smoked per day: 0.5 Alcohol intake: current Alcohol intake frequency: few times a month Substance/Drug Use: never Female Reproductive History : 4 Data Anesthesia 01/10/25 19:19 Short CBC 01/10/25 Range/Units 19:19 WBC 9.68 (3.29-11.43) 10^3/uL Hgb 12.80 (11.27-16.99) g/dL Hct 39.1 (36-47) % MCV 89.1 (85-98) fl Plt Count 284 (157-399) 10^3/cmm Neut % (Auto) 67.0 % Neut # (Auto) 6.48 (1.8-7.7) 10^3/uL BMP 01/10/25 19:19 Sodium 135 L Potassium 3.8 Chloride 103 Carbon Dioxide 22 BUN 5 L Creatinine 0.5 Glucose 102 Calcium 8.9 Liver Function 01/10/25 Range/Units 19:19 Total Bilirubin 0.3 (0.15-1.2) mg/dL AST 20 (0-32) U/L ALT 16 (0-33) U/L Alkaline Phosphatase 192 H (35-105) U/L Albumin 3.0 L (3.5-5.2) g/dL Urine 01/10/25 Range/Units 19:19 Urine Color Yellow (Yellow) Urine Appearance Clear (CLEAR) Urine pH 7.0 (5-7) Ur Specific [place] 1.011 (1.005-1.030) Urine Protein Negative (Negative) Urine Glucose (UA) Negative (Normal) Urine Ketones Negative (Negative) Urine Nitrate Positive A (Negative) Urine Bilirubin Negative (Negative) Ur Leukocyte Esterase Trace A (Negative) Urine RBC 0-4 H (0-2) /hpf Urine WBC 0-4 H (0-5) /hpf Blood Bank 01/10/25 19:19 Blood Type O Positive Rho(D) Type Rh positive Antibody Screen Negative Microbiology 01/10/25 19:19 Urine Culture - Preliminary Urine,Clean Catch Gram Negative Rods
--- NOTE | 2025-01-12 10:37 | ANES.PROC ---
Anesthesia Procedures Procedure/Date: 01/12/25 Epidural: Time Out Performed: Yes Consents Signed: Procedure Consent and NPO Consent Consent: requested by attending/covering physician and from patient Lumbar Level: L3-L4 Epidural position: sitting Additional Comments: Site was sterilely prepped prepped with ChloraPrep. 1% lidocaine was used to numb the skin. An 18-gauge epidural needle was then introduced into [id number] was achieved around 7 cm to the skin. Negative paresthesias noted. A 27-gauge spinal needle was then introduced into the spinal canal and 1 cc of 0.25% bupivacaine was then injected into the spinal space. Spinal needle was removed and epidural catheter was threaded and left at 15 cm to skin. No systemic response noted. Patient did have a very hard time sitting still during the procedure but epidural placement went well. Ropivacaine 0.2% set at 13 mL/h
--- NOTE | 2025-01-12 11:20 | P.PN_ITS ---
Subjective 2 Subjective: Comfortable with epidural and numb but moans when she has to move. Vitals/I&O/Wt Last Vital Signs Temp 97.7 F 01/12/25 09:19 Pulse 64 01/12/25 11:13 Resp 14 01/12/25 06:32 BP 125/73 01/12/25 11:13 Pulse Ox 100 01/12/25 10:04 O2 Del Method Room Air 01/12/25 06:32 01/11/25 01/12/25 01/12/25 22:59 06:59 14:59 Intake Total 1850.867 / 1850.867 Balance 1850.867 / 1850.867 Weight last 48 hrs Weight 165 lb Physical Exam 2 : OTHER: cvx /-2, vertex, AROM clear with old bloody show. Data 01/10/25 19:19 Micro: Microbiology 01/10/25 19:19 Urine Culture - Preliminary Urine,Clean Catch Gram Negative Rods A&P Assessment and plan 1. 38 weeks gestation of : 2. Essential hypertension: 3. Hepatitis C virus infection in mother during : Plan: IOL, good progress, anticipate . FHR reactive. PDMP PDMP Reviewed: Not Reviewed Attestations 2 Medical Necessity Statement*: IOL Coding Level of Care Code Acute Code for Chg Fwd Diagnoses 38 weeks gestation of Z3A.38 Essential hypertension I10 Hepatitis C virus infection in mother during O98.419; B19.20
--- NOTE | 2025-01-12 16:52 | P.PN_ITS ---
Subjective 2 Subjective: Pt complete. Vitals/I&O/Wt Last Vital Signs Temp 97.7 F 01/12/25 09:19 Pulse 78 01/12/25 16:28 Resp 14 01/12/25 06:32 BP 147/79 01/12/25 16:28 Pulse Ox 100 01/12/25 10:04 O2 Del Method Room Air 01/12/25 06:32 01/12/25 01/12/25 01/12/25 06:59 14:59 22:59 Intake Total 2108.067 / 2108.067 Output Total 700 / 700 Balance 1408.067 / 1408.067 Weight last 48 hrs Weight 165 lb Physical Exam 2 Urinary Catheter Management: Leggett: Cath Placed During This Visit: yes Urinary Catheter Date of Insertion: 01/12/25 Urinary Catheter Time of Insertion: 10:45 Data 01/10/25 19:19 Micro: Microbiology 01/10/25 19:19 Urine Culture - Final Urine,Clean Catch Escherichia coli A&P Assessment and plan 1. 38 weeks gestation of : Antcipate PDMP PDMP Reviewed: Not Reviewed Attestations 2 Medical Necessity Statement*: Labor Coding Level of Care Code Acute Code for Chg Fwd Diagnoses 38 weeks gestation of Z3A.38
--- NOTE | 2025-01-12 17:37 | PM.MISC ---
Miscellaneous Note Note: Asked to break a forebag. Exam is swollen anterior portion of cervix, so 9.5 cm dilated still behind pubis. Asked staff to change maternal position for several contractions to help baby to pelvic floor and aid delivery. FHR reactive with some sharp quick variables, overall looks good.
[2025-01-12] MEDS: lidocaine 2% INJ 20 mL INJECTION (19:46)
--- NOTE | 2025-01-12 20:24 | PM.DELIVERY ---
Delivery Note: Date of delivery: January 12, 2025 Pre-delivery diagnoses: term , hep c, chronic htn, multigravid Post-delivery diagnoses: same Procedure: Delivering Physician: Karla Amato MD Estimated blood loss (mL): 200 Findings: viable male infant, 2nd degree laceration, intact placenta Post Delivery Diagnoses: Multigravida of advanced maternal age in third trimester: Qualifiers: Trimester: third trimester Delivery: Post-Delivery Status: stable in recovery History History History 7 Term 3 0 Miscarriages/Ectopic 3 Living Children 3 A&P Assessment and plan 1. 38 weeks gestation of : 2. Poor compliance: 3. Multigravida of advanced maternal age in third trimester: 4. Abnormal ultrasound: 5. RPR positive: 6. Hepatitis C virus infection in mother during : 7. Former smoker: 8. History of illicit drug use: 9. Essential hypertension: PDMP PDMP Reviewed: Not Reviewed Coding Level of Care Code Acute Code for Chg Fwd Diagnoses 38 weeks gestation of Z3A.38 Poor compliance Z91.199 Multigravida of advanced maternal age in third trimester O09.523 Trimester: third trimester Abnormal ultrasound O28.3 RPR positive A53.0 Hepatitis C virus infection in mother during O98.419; B19.20 Former smoker Z87.891 History of illicit drug use F19.91 Essential hypertension I10
[2025-01-13] VITALS (8 sets, daily range): BP systolic 111–138; BP diastolic 56–76; PULSE 70–88; RESP 16–18; TEMP 36.6–37.3
--- NOTE | 2025-01-13 02:29 | PC.NURSE ---
Blanka Baker RN has educated patient to feed several times through the night. Patient educated to feed infant every 2 hrs. reluctant to feed nurse educated on arousing to wake up and eat. at approximately 2245 this Rn attempted to help latch to breast. Mother states after approximately 5 minutes of trying that she is too tired and wants to try again later. Approximately 0020 González [place], ROSALBA entered room to obtain vitals. Mother of asked RN to take at this time to try and feed her a bottle as Im too tired to do it, i just need sleep for a little bit. At 0130 Blanka Baker, RN entered patient room and patient asked if was okay. Rn reported that was attempting to eat and had a temp currently of 97.7. Rn asked if patient wanted the to come back to the room at this time and she said no. At 0210 Blanka Baker, RN entered patient room. Patient reported feeling hot at this time. Rn obtained vital signs, temp of 98.3 orally, 86 HR, 18RR, 132/76 blood pressure. patient visibly sweating at this time. RN asked patient if baby could come back to room at this time. Patient reports she wants to stay out with the nurses longer as she is tired and wants to rest.
--- NOTE | 2025-01-13 04:03 | PC.NURSE ---
0350 RN at bedside taking patient blood pressure and assessing bleeding. Infant taken back to room at this time.
[2025-01-13] MEDS: PRENATAL VIT NO.130/IRON/FOLIC 1 EACH TABLET PO (05:03)
[2025-01-13 05:23] LABS: Hematocrit 32.1 % (36-47); Hemoglobin 10.70 g/dL (11.27-16.99); Mean Corpuscular HGB Conc 33.3 g/dL (30-55); Mean Corpuscular Hemoglobin 29.6 pg (27-33); Mean Corpuscular Volume 88.7 fl (85-98); Platelet Count 238 10^3/cmm (157-399); Red Blood Count 3.62 10^6/uL (3.85-5.65); White Blood Count 20.34 10^3/uL (3.29-11.43)
--- NOTE | 2025-01-13 06:02 | PC.NURSE ---
At 0600 this RN answered patient call light. When RN walked into room patient was lying in bed on her left side and was in bassinet on right side of bed with patient back facing her. Patient stated she is crying can you check her and feed her. This RN instructed the patient that she need to try to change and feed her. Patient stated im just too tired and sweaty. This RN checked patient temperature at this time. 98.5 orally. This Rn reported temperature to patient and requested/ encouraged patient to try and check on baby and change her/ feed her. The patient then stated Do it one more time, im tired and feel like i have been hit by a truck. i cant patient proceeded to fall back asleep at this time. RN took to nursery at this time.
--- NOTE | 2025-01-13 10:01 | P.PN_ITS ---
Subjective 2 Subjective: Date & Time: 2025-01-13 Patient Name: : MRN: Author / Clinician: Hiren Rome MD Subjective Chief Complaint: ?Routine check ? day #1.? History of Present Illness: The patient is day #1 following a normal spontaneous vaginal delivery after induction for advanced maternal age. Past history is notable for smoking, history of drug use, acute hepatitis C, and chronic hypertension. She reports less vaginal bleeding today, is voiding spontaneously, and is able to ambulate independently without assistance. She denies any current concerns. Baby is reportedly doing well. Review of Systems: ? General: Denies fever, chills, or other concerns. ? Genitourinary: Notes decreased vaginal bleeding today; voiding without difficulty. ? Musculoskeletal/Neurologic: Ambulating independently. No additional systems reviewed or symptoms endorsed. Objective Vital Signs: Measure Value Blood Pressure 111/64 mmHg (latest) Temperature 98.3 ?F Physical Exam: ? General: Alert, in no acute distress, ambulating without assistance. ? Pelvic: Lochia scant, no excessive bleeding noted. ? Overall: No signs of infection or anemia. Vitals/I&O/Wt Last Vital Signs Temp 98.3 F 01/13/25 09:39 Pulse 70 01/13/25 09:39 Resp 17 01/13/25 09:39 BP 111/64 01/13/25 09:39 Pulse Ox 100 01/12/25 10:04 O2 Del Method Room Air 01/12/25 06:32 01/12/25 01/13/25 01/13/25 22:59 06:59 14:59 Intake Total 1389.850 / 3497.917 Output Total 700 / 1400 Balance 689.850 / 2097.917 Physical Exam 2 Urinary Catheter Management: Leggett: Cath Placed During This Visit: yes, but has since been removed by the nurse Reason for Continuing Indwelling Catheter: Decision to DC Catheter Urinary Catheter Date of Insertion: 01/12/25 Urinary Catheter Time of Insertion: 10:45 Date Urinary Catheter Removed: 01/12/25 Time Urinary Catheter Discontinued: 16:40 Data 01/13/25 05:15 01/10/25 19:19 Micro: Microbiology 01/10/25 19:19 Urine Culture - Final Urine,Clean Catch Escherichia coli A&P Assessment and plan 1. , delivered: 2. Poor compliance: 3. Multigravida of advanced maternal age in third trimester: 4. Abnormal ultrasound: 5. RPR positive: 6. Hepatitis C virus infection in mother during : 7. Former smoker: 8. History of illicit drug use: 9. Essential hypertension: Plan: Assessment & Plan day #1 after uncomplicated vaginal delivery. Patient recovering well with stable vitals, minimal lochia, and no complaints. Problem #1: Routine Recovery (PPD #1) Assessment: Uncomplicated recovery; stable vitals, minimal bleeding, ambulating, voiding well, no signs of infection or anemia. Plan: - Continue routine monitoring. - Encourage ambulation as tolerated. - Anticipate discharge home later today or tomorrow if patient and baby remain stable. Problem #2: Chronic Hypertension Assessment: History noted; no current issues reported . Plan: Problem #3: Acute Hepatitis C Assessment: Known history; no acute concerns raised today. Will address PP visit. PDMP PDMP Reviewed: Not Reviewed Attestations 2 Medical Necessity Statement*: Post recovery Coding Level of Care Code Acute Code for Chg Fwd Diagnoses , delivered O80 Poor compliance Z91.199 Multigravida of advanced maternal age in third trimester O09.523 Trimester: third trimester Abnormal ultrasound O28.3 RPR positive A53.0 Hepatitis C virus infection in mother during O98.419; B19.20 Former smoker Z87.891 History of illicit drug use F19.91 Essential hypertension I10
--- NOTE | 2025-01-13 12:14 | ANE.PACU2 ---
Inpatient post-anesthesia follow up: Airway intact: Yes Vital signs: Temperature 98.1 F Pulse Rate 76 Respiratory Rate 16 Blood Pressure 126/76 Pulse Oximetry 99 Oxygen Delivery Me thod Room Air Oxygen Flow Rate Fraction of Inspir ed Oxygen Hydration adequate: Yes Nausea and vomiting: No Pain level: 2 Mental status: Baseline Additional Comments: patient appears to be in methamphetamine withdrawl Epidural Start/End: Epidural Start Date: 01/12/25 Epidural Start Time: 10:05 Epidural End Date: 01/13/25 Epidural End Time: 00:04
--- NOTE | 2025-01-13 16:25 | PM.OBGYDC ---
Discharge Providers [facility] APPRENT[facility] Date of Admission: 01/10/25 21:18 Date of Discharge: 01/14/25 Attending Provider at Admission: Hiren Rome MD Attending Provider at Discharge: Karla Amato MD Primary Care Provider: Juan Lomas DO Diagnoses at Discharge Discharge Diagnosis 1. , delivered: 2. Poor compliance: 3. Multigravida of advanced maternal age in third trimester: 4. RPR positive: 5. Hepatitis C virus infection in mother during : 6. Former smoker: 7. History of illicit drug use: 8. Essential hypertension: Reason for Visit Reason for Visit: ctx,decreased movement,high blood pressure Hospital Course Hospital Course Hospital Course Summary 44-year-old patient of advanced maternal age with chronic hepatitis C, chronic hypertension on daily labetalol, history of drug use, and poor compliance with care was admitted with contractions and underwent induction of labor. On admission, the patient was afebrile and hemodynamically stable. course was notable for limited engagement with care and multiple risk factors, including substance use and chronic hypertension. Hepatitis C status was confirmed; per guidelines, invasive procedures and internal monitoring were avoided unless clinically indicated, and delivery was not performed solely for HCV status. The patient was managed with continued labetalol for blood pressure control, and routine screening for sexually transmitted infections was performed. Labor progressed over two days, resulting in an uncomplicated vaginal delivery. No intrapartum complications occurred. The was evaluated by pediatrics and social contact worker, with custody transferred to social contact worker prior to discharge due to maternal history of drug use, positive drug screen and poor compliance, consistent with multidisciplinary recommendations for high-risk social circumstances. , the patient remained clinically stable with normal laboratory results and vital signs. No evidence of hepatic decompensation, hypertensive crisis, or infection was noted. The patient was counseled on follow-up for hepatitis C management, including linkage to hepatology for consideration of antiviral therapy, and on the importance of ongoing blood pressure monitoring. The patient was discharged home in stable condition. The was discharged to social contact worker custody. Both mother and had no immediate complications related to delivery or hepatitis C infection. Information Peripartum Data: Delivery Method: Vaginal Physical Exam Urinary Catheter Management: [place]: Cath Placed During This Visit: yes, but has since been removed by the nurse Reason for Continuing Indwelling Catheter: Decision to DC Catheter Urinary Catheter Date of Insertion: 01/12/25 Urinary Catheter Time of Insertion: 10:45 Date Urinary Catheter Removed: 01/12/25 Time Urinary Catheter Discontinued: 16:40 History History History 7 Term 3 0 Miscarriages/Ectopic 3 Living Children 3 Discharge Data Studies Completed and Pending Laboratory Results WBC 20.34 10^3/uL (3.29-11.43) H 01/13/25 05:15 RBC 3.62 10^6/uL (3.85-5.65) L 01/13/25 05:15 Hgb 10.70 g/dL (11.27-16.99) L 01/13/25 05:15 Hct 32.1 % (36-47) L 01/13/25 05:15 MCV 88.7 fl (85-98) 01/13/25 05:15 MCH 29.6 pg (27-33) 01/13/25 05:15 MCHC 33.3 g/dL (30-55) 01/13/25 05:15 RDW 13.7 % (12.1-15.1) 01/13/25 05:15 Plt Count 238 10^3/cmm (157-399) 01/13/25 05:15 MPV 12.0 fL (7.4-10.4) H 01/13/25 05:15 Neut % (Auto) 67.0 % 01/10/25 19:19 Lymph % (Auto) 21.9 % 01/10/25 19:19 [place] % (Auto) 9.4 % 01/10/25 19:19 Eos % (Auto) 0.8 % 01/10/25 19:19 Baso % (Auto) 0.2 % 01/10/25 19:19 Neut # (Auto) 6.48 10^3/uL (1.8-7.7) 01/10/25 19:19 Lymph # (Auto) 2.1 10^3/uL (0.8-4.8) 01/10/25 19:19 [place] # (Auto) 0.9 10^3/uL (0.2-0.9) 01/10/25 19:19 Eos # (Auto) 0.1 10^3/uL (0.0-0.8) 01/10/25 19:19 Baso # (Auto) 0.0 10^3/uL (0.0-0.1) 01/10/25 19:19 Nucleated RBC % (auto) 0 % 01/10/25 19:19 Nucleated RBCs # 0.0 /100WBC 01/10/25 19:19 Sodium 135 mmol/L (136-145) L 01/10/25 19:19 Potassium 3.8 mmol/L (3.5-5.1) 01/10/25 19:19 Chloride 103 mmol/L (98-107) 01/10/25 19:19 Carbon Dioxide 22 mmol/L (22-29) 01/10/25 19:19 Anion Gap 13.8 (5-19) 01/10/25 19:19 BUN 5 mg/dL (6-20) L 01/10/25 19:19 Creatinine 0.5 mg/dL (0.5-0.9) 01/10/25 19:19 GFR Calculation 135.3 mL/min (90-130) H 01/10/25 19:19 Glucose 102 mg/dL (65-115) 01/10/25 19:19 POC Glucose 54 mg/dL (70-110) L 01/12/25 21:45 Calculated Osmolality 277 mOsm/kg (285-295) L 01/10/25 19:19 Uric Acid 4.2 mg/dL (2.4-5.7) 01/10/25 19:19 Calcium 8.9 mg/dL (8.5-10.5) 01/10/25 19:19 Total Bilirubin 0.3 mg/dL (0.15-1.2) 01/10/25 19:19 AST 20 U/L (0-32) 01/10/25 19:19 ALT 16 U/L (0-33) 01/10/25 19:19 Alkaline Phosphatase 192 U/L (35-105) H 01/10/25 19:19 Lactate Dehydrogenase 141 U/L (135-214) 01/10/25 19:19 Total Protein 5.9 g/dL (6.6-8.7) L 01/10/25 19:19 Albumin 3.0 g/dL (3.5-5.2) L 01/10/25 19:19 Globulin 2.9 g/dL (1.3-4.6) 01/10/25 19:19 Urine Color Yellow (Yellow) 01/10/25 19:19 Urine Appearance Clear (CLEAR) 01/10/25 19:19 Urine pH 7.0 (5-7) 01/10/25 19:19 Ur Specific [place] 1.011 (1.005-1.030) 01/10/25 19:19 Urine Protein Negative (Negative) 01/10/25 19:19 Urine Glucose (UA) Negative (Normal) 01/10/25 19:19 Urine Ketones Negative (Negative) 01/10/25 19:19 Urine Blood Negative (Negative) 01/10/25 19:19 Urine Nitrate Positive (Negative) A 01/10/25 19:19 Urine Bilirubin Negative (Negative) 01/10/25 19:19 Urine Urobilinogen 1.0 mg/dL (Negative) 01/10/25 19:19 Ur Leukocyte Esterase Trace (Negative) A 01/10/25 19:19 Urine RBC 0-4 /hpf (0-2) H 01/10/25 19:19 Urine WBC 0-4 /hpf (0-5) H 01/10/25 19:19 Ur Squamous Epith Cells 0-4 /hpf (0-5) H 01/10/25 19:19 Amorphous Sediment Not Reportable 01/10/25 19:19 Urine Bacteria 3+ /hpf (NONE) H 01/10/25 19:19 U Random Total Protein 15 mg/dL 01/10/25 19:19 Urine Creatinine 67 mg/dL (28-217) 01/10/25 19:19 Protein/Creatinin Ratio 0.22 mg/mg CR 01/10/25 19:19 Urine Opiates Screen Negative ng/mL (Negative) 01/10/25 19:19 Ur Barbiturates Screen Negative ng/mL (Negative) 01/10/25 19:19 Ur Phencyclidine Scrn Negative ng/mL (Negative) 01/10/25 19:19 Ur Amphetamines Screen Positive ng/mL (Negative) H 01/10/25 19:19 U Benzodiazepines Scrn Negative ng/mL (Negative) 01/10/25 19:19 Urine Cocaine Screen Negative ng/mL (Negative) 01/10/25 19:19 U Marijuana (THC) Screen Negative ng/mL (Negative) 01/10/25 19:19 Blood Type O Positive 01/10/25 19:19 Rho(D) Type Rh positive 01/10/25 19:19 Antibody Screen Negative 01/10/25 19:19 Vitals Last Vital Signs Temp 98.3 F 01/13/25 09:39 Pulse 70 01/13/25 09:39 Resp 17 01/13/25 09:39 BP 111/64 01/13/25 09:39 Pulse Ox 100 01/12/25 10:04 O2 Del Method Room Air 01/12/25 06:32 Results Labs OB ([facility]): Obstetrics US 12/21/24 Blood Type O Positive 01/10/25 Antibody Screen Negative 01/10/25 Hct, (36-47) 32.1 % L 01/13/25 Hgb, (11.27-16.99) 10.70 g/dL L 01/13/25 Rho(D) Type Rh positive 01/10/25 Plt Count, (157-399) 238 10^3/cmm 01/13/25 Hep Bs Antigen, (Nonreactive) Non-reactive 11/05/24 Hepatitis C Antibody, (Nonreactive) Reactive H 11/05/24 Rubella IgG Antibody, (0.0-10.0) 5.3 IU/mL 11/05/24 RPR, (Nonreactive) Reactive 11/05/24 T.pallidum Ab (FTA-ABS) Reactive minimal A 12/03/24 HIV 1&2 Ab & HIV 1 Ag, (Non-Reactiv) Non-reactive 11/05/24 TSH, (0.27-4.20) 1.99 uIU/mL 11/05/24 C.trachomatis RNA (TMA), (NOT DETECTED) Not detected 08/23/23 N.gonorrhoeae RNA (TMA), (NOT DETECTED) Not detected 08/23/23 T. vaginalis Amp RNA, (NOT DETECTED) Not detected 08/23/23 Chlamydia/GC Comment See note 08/23/23 Glucose 1 Hr 50 gm, (85-140) 115 mg/dL 11/05/24 Uric Acid, (2.4-5.7) 4.2 mg/dL 01/10/25 HCG, Qual, (Negative) Negative 08/23/23 Urine Opiates Screen, (Negative) Negative ng/mL 01/10/25 Ur Barbiturates Screen, (Negative) Negative ng/mL 01/10/25 Ur Phencyclidine Scrn, (Negative) Negative ng/mL 01/10/25 Ur Amphetamines Screen, (Negative) Positive ng/mL H 01/10/25 U Benzodiazepines Scrn, (Negative) Negative ng/mL 01/10/25 Urine Cocaine Screen, (Negative) Negative ng/mL 01/10/25 U Marijuana (THC) Screen, (Negative) Negative ng/mL 01/10/25 Micro Urine Specimen 01/10/25 Discharge Plan Discharge Patient Disposition: Home Condition: Stable Prescriptions: Continued aspirin 81 mg tablet,delayed release (DR/EC) 81 mg PO 1XD labetalol 100 mg tablet 100 mg PO 1XD M- Plus 27 mg iron- 1 mg tablet 1 tab PO 1XD Discharge Order = DC NOW: Discharge Order (Routine); Ordered 01/14/25 Ordered By: Hiren Rome Referrals: Asael Bucio MD [Physician, [facility]PRENTICE] - 01/27/25 12:45 pm Patient Instructions: Depression (DC), Opioid Safety (DC), Preeclampsia and Eclampsia After Delivery (GEN), Hemorrhage (DC), OB Food/Drug Interaction Guide, Opioid Safety, OB Home Care, OB Vaginal Deliveries - [facility], Patient Portal & [facility] Instructions, Abnormal Bleeding Discharge Attestations [employer] APPRENTICE Time Spent in Discharge Care*: greater than 30 min Coding Level of Care Code Acute Code for Chg Fwd Diagnoses , delivered O80 Poor compliance Z91.199 Multigravida of advanced maternal age in third trimester O09.523 Trimester: third trimester RPR positive A53.0 Hepatitis C virus infection in mother during O98.419; B19.20 Former smoker Z87.891 History of illicit drug use F19.91 Essential hypertension I10
--- NOTE | 2025-01-13 18:49 | PC.NURSE ---
Luz with [facility] here at bedside discussing plan of care
[2025-01-14 04:18] VITALS: BP 145/78; PULSE 72; RESP 16; O2SAT 99
[2025-01-14] MEDS: PRENATAL VIT NO.130/IRON/FOLIC 1 EACH TABLET PO (04:19)
[2025-01-14 09:50] VITALS: BP 126/76; PULSE 76; RESP 16; TEMP 36.7; O2SAT 99
== END 2025-01-14 10:20 | disposition home or self-care (01) | DRG 560 ==
LOC: OPOB 21:18 → OBGYN 21:18
PROVIDERS: Admitting Provider Obstetrics & Gynecology; PCP Family Medicine; Visit Provider Obstetrics & Gynecology
DX: O10.92 Unspecified pre-existing hypertension complicating childbirth (principal); O98.42 Viral hepatitis complicating childbirth; O99.334 Smoking (tobacco) complicating childbirth; F17.210 Nicotine dependence, cigarettes, uncomplicated; O99.324 Drug use complicating childbirth; F15.90 Other stimulant use, unspecified, uncomplicated; Z37.0 Single live birth
CPT/HCPCS: 36415; 36416; 51702; 59025; 59409; 80053; 80306; 81001; 82570; 82962; 83615; 84156; 84550; 85025; 85027; 86850; 86900; 87077; 87086; 87186; 96374; 96376; 99211; J1171; J2590; J2795; J3010; J3490; J7030; J7121; J9999